=== PATIENT | male | born 1960 | race Caucasian/White ===

== ENCOUNTER → 2017-01-12 | Outpatient (REF) | payer OTHER ==
[2017-01-12 13:54] LABS: BLOOD UREA NITROGEN 16 MG/DL (7-18); CREATININE FOR GFR 0.96 MG/DL (0.70-1.30); GLOMERULAR FILTRATION RATE > 60.0 (>56)
== END ==
LOC: M LABDRAW1 10:28
PROVIDERS: ATTEND Orthopaedic Surgery
DX: M16.12 Unilateral primary osteoarthritis, left hip (principal)

== ENCOUNTER → 2018-05-29 | Outpatient (CLI) | payer BC, OTHER ==
--- NOTE | 2018-05-29 20:38 | REP ---
MRI RIGHT KNEE: TECHNIQUE: Axial proton density fat saturation, sagittal proton density T2 STIR, water excitation, coronal proton density, proton density fat saturation. There is a tear of the posterior horn of the medial meniscus. Lateral meniscus is intact. There has been prior reconstruction of the cruciate ligament, which appears intact. The posterior cruciate ligaments are intact. Extensor mechanism is intact. There is mild scattered chondromalacia throughout the medial and lateral joint compartments. There is no bone marrow edema or occult fracture. There is a moderate joint effusion. No popliteal cysts is seen. IMPRESSION: Tear of the posterior horn medial meniscus. Reconstructed anterior cruciate ligament is intact as are the other ligamentous structures of the knee. Mild diffuse chondromalacia in the medial and lateral joint compartments. Moderate joint effusion. Electronically Signed by Raffy Lugo MD 05/30/2018 11:36 A
== END ==
LOC: M RAD 14:41
PROVIDERS: ATTEND Orthopaedic Surgery Sports Medicine
DX: S83.241A Other tear of medial meniscus, current injury, right knee, initial encounter (principal); X58.XXXA Exposure to other specified factors, initial encounter; Y92.9 Unspecified place or not applicable

== ENCOUNTER → 2019-07-23 | Outpatient (CLI) | payer BC, OTHER ==
[~2019-07-23] MED LIST: CONRAY-43 43% 50ML VIAL (Q9960) As Ordered ONE; LIDOCAINE 1% MDV 20ML VIAL As Ordered ONE; TRIAMCINOLONE ACETONIDE SUSP 40 MG/ML VIAL (J3301) As Ordered ONE
--- NOTE | 2019-07-23 17:17 | REP ---
LEFT HIP INJECTION The procedure was performed under the direct supervision of Dr. Monahan. The risks and benefits of the procedure were explained to the patient and informed consent was obtained. The left femoral neck was localized using fluoroscopic guidance. The skin was prepped and draped in a sterile fashion. 1% lidocaine was used as a local anesthetic. Using fluoroscopic guidance a 22-gauge spinal needle was inserted and advanced to the femoral neck. 0.5 ml of Conray 43 was injected to verify placement. 6 ml of a solution containing 5 ml of 1% lidocaine and 1 ml of Kenalog 40 mg injected. The needle was then removed. The patient tolerated the procedure well and there were no immediate complications. Less than 6 seconds of fluoroscopy time was utilized for this procedure. Electronically Signed by ZHANNA Aleman 07/23/2019 04:57 P Electronically Signed by Morteza Monahan MD 07/23/2019 05:09 P
== END ==
LOC: M RADPRO 14:07
PROVIDERS: ATTEND Orthopaedic Surgery Sports Medicine
DX: M16.12 Unilateral primary osteoarthritis, left hip (principal)
CPT/HCPCS: 20610; 77002; J3301; Q9960

== ENCOUNTER 2021-03-06 11:25 | Observation (INO) | payer BC, OTHER ==
[~2021-03-06] VITALS: Ht 188 cm; Wt 90.8 kg
--- OUTSIDE RECORDS SUMMARY | 2021-03-06 11:33 | CCD ---
Author Author [facility] Organization [facility] Address Unknown Phone Unavailable Care Team Providers Care It Consultant Name Role Phone YENNI, Ana MENDEZ PA Unavailable Unavailable LETTIERE, A ANDREA PA Unavailable Unavailable LETTIERE, A ANDREA PA Unavailable Unavailable LETTIERE, A ANDREA PA Unavailable Unavailable LETTIERE, A ANDREA PA Unavailable Unavailable LETTIERE, A ANDREA PA Unavailable Unavailable LETTIERE, A ANDREA PA Unavailable Unavailable LETTIERE, A ANDREA PA Unavailable Unavailable LETTIERE, A ANDREA PA Unavailable Unavailable LETTIERE, A ANDREA PA Unavailable Unavailable LETTIERE, A ANDREA PA Unavailable Unavailable LETTIERE, A ANDREA PA Unavailable Unavailable LETTIERE, A ANDREA PA Unavailable Unavailable LETTIERE, A ANDREA PA Unavailable Unavailable LETTIERE, A ANDREA PA Unavailable Unavailable LETTIERE, A ANDREA PA Unavailable Unavailable LETTIERE, A ANDREA PA Unavailable Unavailable LETTIERE, A ANDREA PA Unavailable Unavailable LETTIERE, A ANDREA PA Unavailable Unavailable LETTIERE, A ANDREA PA Unavailable Unavailable LETTIERE, A ANDREA PA Unavailable Unavailable LETTIERE, A ANDREA PA Unavailable Unavailable LETTIERE, A ANDREA PA Unavailable Unavailable LETTIERE, A ANDREA PA Unavailable Unavailable LETTIERE, A ANDREA PA Unavailable Unavailable LETTIERE, A ANDREA PA Unavailable Unavailable LETTIERE, A ANDREA PA Unavailable Unavailable LETTIERE, A ANDREA PA Unavailable Unavailable LETTIERE, A ANDREA PA Unavailable Unavailable LETTIERE, A ANDREA PA Unavailable Unavailable LETTIERE, A ANDREA PA Unavailable Unavailable Jonny Phelps Unavailable Unavailable Jonny Phelps Unavailable Unavailable Jonny Phelps Unavailable Unavailable Jonny Phelps Unavailable Unavailable Jonny Phelps Unavailable Unavailable Jonny Phelps Unavailable Unavailable Jonny Phelps Unavailable Unavailable Phelps, M Barratt PA Unavailable Unavailable Phelps, M Barratt PA Unavailable Unavailable Phelps, M Barratt PA Unavailable Unavailable Phelps, M Barratt PA Unavailable Unavailable Phelps, M Barratt PA Unavailable Unavailable Phelps, M Barratt PA Unavailable Unavailable Phelps, M Barratt PA Unavailable Unavailable Phelps, M Barratt PA Unavailable Unavailable Phelps, M Barratt PA Unavailable Unavailable Phelps, M Barratt PA Unavailable Unavailable Phelps, M Barratt PA Unavailable Unavailable Phelps, M Barratt PA Unavailable Unavailable Phelps, M Barratt PA Unavailable Unavailable Phelps, M Barratt PA Unavailable Unavailable Phelps, M Barratt PA Unavailable Unavailable Phelps, M Barratt PA Unavailable Unavailable Phelps, M Barratt PA Unavailable Unavailable Phelps, M Barratt PA Unavailable Unavailable Phelps, M Barratt PA Unavailable Unavailable Phelps, M Barratt PA Unavailable Unavailable Phelps, M Barratt PA Unavailable Unavailable Phelps, M Barratt PA Unavailable Unavailable Hadian, Braydon Unavailable Unavailable Hadian, Braydon Unavailable Unavailable Hadian, Braydon Unavailable Unavailable Hadian, Braydon Unavailable Unavailable Hadian, Braydon Unavailable Unavailable Hadian, Braydon Unavailable Unavailable Hadian, Braydon Unavailable Unavailable Hadian, Braydon Unavailable Unavailable Hadian, Braydon Unavailable Unavailable Hadian, Braydon Unavailable Unavailable Hadian, Braydon Unavailable Unavailable Hadian, Braydon Unavailable Unavailable Hadian, Braydon Unavailable Unavailable Hadian, Braydon Unavailable Unavailable Hadian, Braydon Unavailable Unavailable Hadian, Braydon Unavailable Unavailable Hadian, Braydon Unavailable Unavailable Hadian, Braydon Unavailable Unavailable Hadian, Braydon Unavailable Unavailable Hadian, Braydon Unavailable Unavailable Hadian, Braydon Unavailable Unavailable Hadian, Braydon Unavailable Unavailable Hadian, Braydon Unavailable Unavailable Hadian, Braydon Unavailable Unavailable Hadian, Braydon Unavailable Unavailable Hadian, Braydon Unavailable Unavailable Hadian, Braydon Unavailable Unavailable Hadian, Braydon Unavailable Unavailable Hadian, Braydon Unavailable Unavailable Hadian, Braydon Unavailable Unavailable Hadian, Braydon Unavailable Unavailable Hadian, Braydon Unavailable Unavailable Hadian, Braydon Unavailable Unavailable Hadian, Braydon Unavailable Unavailable Hadian, Braydon Unavailable Unavailable Hadian, Braydon Unavailable Unavailable Hadian, Braydon Unavailable Unavailable Hadian, Braydon Unavailable Unavailable Hadian, Braydon Unavailable Unavailable Hadian, Braydon Unavailable Unavailable Hadian, Braydon Unavailable Unavailable Hadian, Braydon Unavailable Unavailable Priya Sosa MD Unavailable Unavailable Priya Sosa MD Unavailable Unavailable VaneenenaamPriya MD Unavailable Unavailable VaneenenaamPriya MD Unavailable Unavailable VaneenesvinamPriya MD Unavailable Unavailable VaneenenaamPriya MD Unavailable Unavailable VaneenenaamPriya MD Unavailable Unavailable VaneenenaamPriya MD Unavailable Unavailable VaneenesvinamPriya MD Unavailable Unavailable VanyahairaamPriya MD Unavailable Unavailable VanyahairaamPriya MD Unavailable Unavailable VaneenesvinamPriya MD Unavailable Unavailable VaneenenaamPriya MD Unavailable Unavailable VaneenenaamPriya MD Unavailable Unavailable VaneenenaamPriya MD Unavailable Unavailable VanPriya patel MD Unavailable Unavailable VaneenesvinamPriya MD Unavailable Unavailable VaneenesvinamPriya MD Unavailable Unavailable Vaneenesvinam, Priya Ybarra MD Unavailable Unavailable VanyahairaamPriya MD Unavailable Unavailable VanPriya patel MD Unavailable Unavailable VanPriya patel MD Unavailable Unavailable VanPriya patel MD Unavailable Unavailable VanPriya patel MD Unavailable Unavailable VanPriya patel MD Unavailable Unavailable VanPriya patel MD Unavailable Unavailable VaneenPriya fontanez MD Unavailable Unavailable VanPriya patel MD Unavailable Unavailable VanPriya patel MD Unavailable Unavailable VanPriya patel MD Unavailable Unavailable VanPriya patel MD Unavailable Unavailable VanPriya patel MD Unavailable Unavailable VanPriya patel MD Unavailable Unavailable VanPriya patel MD Unavailable Unavailable VanPriya patel MD Unavailable Unavailable VanPriya patel MD Unavailable Unavailable VanPriya patel MD Unavailable Unavailable VanPriya patel MD Unavailable Unavailable VanPriya patel MD Unavailable Unavailable VanPriya patel MD Unavailable Unavailable Priya Sosa MD Unavailable Unavailable Priya Sosa MD Unavailable Unavailable Priya Sosa MD Unavailable Unavailable Priya Sosa MD Unavailable Unavailable Priya Sosa MD Unavailable Unavailable VanyahairaamPriya MD Unavailable Unavailable Gadiel Zafar MD Unavailable Unavailable Gadiel Zafar MD Unavailable Unavailable Gadiel Zafar MD Unavailable Unavailable Gadiel Zafar MD Unavailable Unavailable Gadiel Zafar MD Unavailable Unavailable Gadiel Zafar MD Unavailable Unavailable Gadiel Zafar MD Unavailable Unavailable Gadiel Zafar MD Unavailable Unavailable Gadiel Zafar MD Unavailable Unavailable Gadiel Zafar MD Unavailable Unavailable Gadiel Zafar MD Unavailable Unavailable Gadiel Zafar MD Unavailable Unavailable Gadiel Zafar MD Unavailable Unavailable Gadiel Zafar MD Unavailable Unavailable Gadiel Zafar MD Unavailable Unavailable Gadiel Zafar MD Unavailable Unavailable Gadiel Zafar MD Unavailable Unavailable Gadiel Zafar MD Unavailable Unavailable Gadiel Zafar MD Unavailable Unavailable Gadiel Zafar MD Unavailable Unavailable Gadiel Zafar MD Unavailable Unavailable Gadiel Zafar MD Unavailable Unavailable Gadiel Zafar MD Unavailable Unavailable Gadiel Zafar MD Unavailable Unavailable Gadiel Zafar MD Unavailable Unavailable Gadiel Zafar MD Unavailable Unavailable Gadiel Zafar MD Unavailable Unavailable Gadiel Zafar MD Unavailable Unavailable Gadiel Zafar MD Unavailable Unavailable Gadiel Zafar MD Unavailable Unavailable Gadiel Zafar MD Unavailable Unavailable Gadiel Zafar MD Unavailable Unavailable Gadiel Zafar MD Unavailable Unavailable Gadiel Zafar MD Unavailable Unavailable Gadiel Zafar MD Unavailable Unavailable Gadiel Zafar MD Unavailable Unavailable Gadiel Zafar MD Unavailable Unavailable Gadiel Zafar MD Unavailable Unavailable Gadiel Zafar MD Unavailable Unavailable Gadiel Zafar MD Unavailable Unavailable Gadiel Zafar MD Unavailable Unavailable Gadiel Zafar MD Unavailable Unavailable Gadiel Zafar MD Unavailable Unavailable Gadiel Zafar MD Unavailable Unavailable Gadiel Zafar MD Unavailable Unavailable Gadiel Zafar MD Unavailable Unavailable Gadiel Zafar MD Unavailable Unavailable Gadiel Zafar MD Unavailable Unavailable Gadiel Zafar MD Unavailable Unavailable Gadiel Zafar MD Unavailable Unavailable Gadiel Zafar MD Unavailable Unavailable Gadiel Zafar MD Unavailable Unavailable Gadiel Zafar MD Unavailable Unavailable Gadiel Zafar MD Unavailable Unavailable Gadiel Zafar MD Unavailable Unavailable Gadiel Zafar MD Unavailable Unavailable Slebernadette, Vojtech MD Unavailable Unavailable Gadiel Zafar MD Unavailable Unavailable Re-disclosure Warning The records that you are about to access may contain information from federally-assisted alcohol or drug abuse programs. If such information is present, then the following federally mandated warning applies: This information has been disclosed to you from records protected by federal confidentiality rules (42 CFR part 2). The federal rules prohibit you from making any further disclosure of this information unless further disclosure is expressly permitted by the written consent of the person to whom it pertains or as otherwise permitted by 42 CFR part 2. A general authorization for the release of medical or other information is NOT sufficient for this purpose. The Federal rules restrict any use of the information to criminally investigate or prosecute any alcohol or drug abuse patient.The records that you are about to access may contain highly sensitive health information, the redisclosure of which is protected by Article 27-F of the [facility] Public Health law. If you continue you may have access to information: Regarding HIV / AIDS; Provided by facilities licensed or operated by the [facility] Office of Mental Health; or Provided by the [facility] Office for People With Developmental Disabilities. If such information is present, then the following [facility] mandated warning applies: This information has been disclosed to you from confidential records which are protected by state law. State law prohibits you from making any further disclosure of this information without the specific written consent of the person to whom it pertains, or as otherwise permitted by law. Any unauthorized further disclosure in violation of state law may result in a fine or long-term sentence or both. A general authorization for the release of medical or other information is NOT sufficient authorization for further disc losure. Family History Family Member Name Family Member Gender Family Member Status Date o f Status Description Data Source(s) Unknown Male Problem [facility] ([facility]) Unknown Unknown Encounters Encounter Providers Location Date Indications Data Source(s ) Outpatient Attender: ANDREA manning 03/06/2021 09:25:00 AM EDT [facility] ([facility] Outpatient Attender: Priya Sosa MD Physical Therap y 02/15/2021 01:00:00 PM EDT [facility] ([facility]) Outpatient Attender: Mary HERNANDEZ Physical Therapy 08:45:00 AM EDT [facility] ([facility]) Outpatient Attender: Gadiel [email or web address] 08/2020 12:00:00 AM EDT - 09/21/2020 11:10:36 AM EDT [facility] Outpatient Attender: Braydon Chester ED-LABPNP 02:14:00 PM EST - 07/12/2020 02:15:00 PM EST RETURN TO WORK [facility] RETURN TO WORK Patient discharged. Office Visit Attender: Mary HERNANDEZ Physical Therapy 08:15:00 AM EST [facility] ([facility]) Office Visit Attender: Mary HERNANDEZ Physical Therapy 08:15:00 AM EST [facility] ([facility]) Office Visit Attender: Mary HERNANDEZ Physical Therapy 08:15:00 AM EST [facility] ([facility]) Immunizations Vaccine Date Status Description Data Source(s) COVID-19 VACCINE Moderna 02/02/2021 12:00:00 AM EDT completed [facility] Vaccine Series Complete: YESThis Data wa s Submitted to [facility] [employer]. COVID-19 VACCINE Moderna 01/05/2021 12:00:00 AM EDT completed [facility] Vaccine Series Complete: NOThis Data was Submitted to [facility] [employer]. VARICELLA-ZOSTER [id number] 07/28/2020 12:00:00 AM EST completed [facility] Medications Medication Brand Name Start Date Product Form Dose Route Admi nistrative Instructions Pharmacy Instructions Status Indications Reaction Description Data Source(s) 5 % 12/15/2020 12:00:00 AM EDT cream 40 APPLY TO SCALY SPOT ON FOREHEAD TWO TIMES A DAY FOR 2-3 WEEKS UNTIL LESION BECOMES "PEPPERONI RED". WILL CAUSE IRRITATION BUT HOLD FOR SEVERE PAIN/OOZING/ULCERATION. PROTECT FROM SUN APPLY TO SCALY SPOT ON FOREHEAD TWO TIMES A DAY FOR 2-3 WEEKS UNTIL LESION BECOMES "PEPPERONI RED". WILL CAUSE IRRITATION BUT HOLD FOR SEVERE PAIN/OOZING/ULCERATION. PROTECT FROM SUN SOLD: 12/22/2020 [facility] 3.5mg/mL-10,000 unit/mL-0.1 % 08/06/2020 12:00:00 AM EDT dick ps,suspension 5 INSTILL 1 DROP INTO BOTH EYES FOUR TIMES A DAY FOR 10 DAYS INSTILL 1 DROP INTO BOTH EYES FOUR TIMES A DAY FOR 10 DAYS SOLD: 08/11/2020 [facility] 3.5mg/mL-10,000 unit/mL-0.1 % 07/16/2020 12:00:00 AM EST dick ps,suspension 5 INSTILL 1 DROP INTO BOTH EYES FOUR TIMES A DAY FOR 10 DAYS INSTILL 1 DROP INTO BOTH EYES FOUR TIMES A DAY FOR 10 DAYS SOLD: 07/16/2020 [facility] 800 mg 07/01/2020 12:00:00 AM EST tablet 60 TAKE ONE TABLET BY MOUTH THREE TIMES A DAY NEEDED FOR PAIN WITH FOOD TAKE ONE TABLET BY MOUTH THREE TIMES A DAY NEEDED FOR PAIN WITH FOOD SOLD: 07/12/2020 [facility] Ibuprofen 800 MG Oral Tablet Ibuprofen 07/01/2020 12:00:00 AM EST ORAL active [facility] ([facility]) 2 ML Sodium Hyaluronate 10 MG/ML Prefilled Syringe [Euflexxa ] Euflexxa 06/17/2020 12:00:00 AM EST active [facility] ([facility]) atorvastatin 10 MG Oral Tablet atorvastatin (LIPITOR) 10 MG tablet atorvastatin (LIPITOR) 10 MG tablet 05/10/2020 12:00:00 AM EST 10 mg Oral active Take 1 tablet (10 mg total) by mouth daily [facility] Cholecalciferol 1000 UNT Oral Capsule ch olecalciferol (VITAMIN D3) 25 MCG (1000 UT) capsule cholecalciferol (VITAMIN D3) 25 MCG (1000 UT) capsule 1000 U Oral aborted Take 1,000 Units by mouth daily [facility] Insurance Providers Payer name Policy type / Coverage type Policy ID Covered green party ID Covered green party's relationship to pope Policy Pope Plan Information [facility] () Workers Compensation [id number] Self [id number] [facility] [employer] () Workers Compensation [id number] Self [id number] [facility] () Workers Compensation [id number] Self [id number] [facility] Health Maintenance Organization (HMO) [id number] Self [id number] [facility] Health Maintenance Organization (HMO) [id number] Self [id number] BCBS EMPIRE JACQUELINE DIV [id number] SP [id number] UNITED [employer] [id number] SP [id number] EXCELLUS BCBS [id number] EXCELLUS BCBS [id number] Sabina YLS [id number] [facility] INSURANCE [facility] [place] [id number] SP [id number] BCBS E[place]IRE [place] [id number] SP [id number] UNITED [employer] [id number] SP [id number] [place] Plan [employer] Commercial [id number] Self [id number] [place] Plan [employer] Commercial [id number] Self EMPIRE ([facility]) O [id number] S [id number] EMPIRE BLUE CROSS -O/P [id number] [employer] Health Maintenance Organization (HMO) [id number] Self [facility] EMPIRE PLAN O [id number] S [id number] UNITED HE[employer]CARE [id number] SP [id number] EMPIRE HEALTH CHOICE O [id number] S [id number] BCBS EMPIRE [place]QUELINE DIV [id number] SP [id number] EXCELLUS [place] EMPIRE [id number] S [id number] EXCELLUS BCBS [place] EMPIRE [id number] S [id number] [facility] [id number] S [id number] BCBS EMPIRE [id number] S [id number] EMPIRE ([facility]) O [id number] S [id number] [facility] [id number] SP [id number] BCBS EMPIRE JACQUELINE DIV [id number] SP [id number] Problems, Conditions, and Diagnoses Code Display Name Description Problem Type Effective Dates Data Source(s) H53.122 Transient visual loss, left eye Transient visual loss, left eye Diagnosis 09/21/2020 10:13:35 AM EDT [facility] R42 Dizziness and giddiness Dizziness and giddiness Diagno sis 09/21/2020 10:13:35 AM EDT [facility] E78.00 Pure hypercholesterolemia, unspecified P ure hypercholesterolemia, unspecified Diagnosis 09/21/2020 10:13:35 AM EDT [facility] R94.31 Abnormal electrocardiogram [ECG] [EKG] A bnormal electrocardiogram (ECG) (EKG) Diagnosis 09/21/2020 10:13:35 AM EDT [facility] Surgeries/Procedures Procedure Description Date Indications Data Source(s) OFFICE OUTPATIENT NEW 30 MINUTES 03/06/2021 12:00:00 A M EDT [facility] ([facility]) RADIOLOGIC EXAMINATION KNEE 3 VIEWS 02/15/2021 12:00:0 0 AM EDT [facility] ([facility] OFFICE OUTPATIENT VISIT 25 MINUTES 02/15/2021 12:00:00 AM EDT [facility] ([facility] ) ARTHROCENTESIS ASPIR&/INJECTION MAJOR JT/BURSA 021 12:00:00 AM EDT [facility] ([facility] OFFICE OUTPATIENT VISIT 25 MINUTES 11/25/2020 12:00:00 AM EDT [facility] ([facility] ECG ROUTINE ECG W/LEAST 12 LDS W/I&R <td>POCT AMB EKG</td><td>Routine</td><td>09/21/2020 10:42 AM EDT</td><td> Abnormal electrocardiogram Pure hypercholesterolemia</td><td> </td> 09/21/2020 10:42:00 AM EDT Pure hypercholesterolemiaAbnormal electrocardiogram [facility] Pure hypercholesterolemia Abnormal electrocardiogram ARTHROCENTESIS ASPIR&/INJECTION MAJOR JT/BURSA 021 12:00:00 AM EST [facility] ([facility]) ARTHROCENTESIS ASPIR&/INJECTION MAJOR JT/BURSA 021 12:00:00 AM EST [facility] ([facility]) ARTHROCENTESIS ASPIR&/INJECTION MAJOR JT/BURSA 021 12:00:00 AM EST [facility] ([facility]) Results ID Date Data Source [id number] 07/12/2020 01:12:00 PM EST [facility] Name Value Range Interpretation Code Description Data Lea rce(s) Supporting Document(s) Respiratory specimen severe acute respir atory syndrome coronavirus 2 (SARS-CoV-2) RNA Negative (qualifier value) [facility] This lab was ordered by [facility] and reported by . ID Date Data Source [id number] 07/13/2020 07:45:00 AM EST [facility] Name Value Range Interpretation Code Description Data Lea rce(s) Supporting Document(s) SARS-CoV-2 RNA INHOUSE Negative Normal (applies to non-n umeric results) [facility] THIS IS A STATE REPORTABLE COMMUNICABLE DISEASE. Testing was performed using the [employer] COVID-19 MDx Assay. This test has been authorized by FDA under an (Emergency Use Authorization) EUA for use by authorized laboratories for individuals who are suspected of COVID-19 by their healthcare provider. This test is only authorized for the duration of the declaration that circumstances exist justifying the authorization of emergency use of in vitro diagnostic tests for detection and/or diagnosis of SARS-CoV-2. Methodology: Endpoint RT-PCR. Fact sheets for this EUA assay can be found at the following links: Providers: https://www.fda.gov/media/735313/download Patients : https://www.fda.gov/media/233701/download THIS IS A [facility] REPORTABLE COMMUNICABLE DISEASE Negative results do not preclude SARS-CoV-2 infection and should not be used as the sole basis for patient management decisions. Negative results must be combined with clinical observations,patient history, and epidemiological information. Procedure Social History Code Duration Value Status Description Data Source(s ) Smoking 03/06/2021 12:00:00 AM EDT Patient has never smoked co mpleted Patient has never smoked [facility] ([facility], [facility]) Alcohol intake 09/21/2020 12:00:00 AM EDT Ex-drinker (finding) comp leted Ex- drinker (finding) [facility] Smoking 06/17/2020 12:00:00 AM EST Patient has never smoked co mpleted Patient has never smoked [facility] ([facility]) Vital Signs ID Date Data Source UNK Name Value Range Interpretation Code Description Data Source(s) Systolic blood pressure 93 mm[Hg] 93 mm[Hg] M EDENT ([facility], [facility]) Diastolic blood pressure 63 mm[Hg] 63 mm[Hg] [facility] ([facility], [facility]) Heart rate 64 /min 64 /min [facility]) Respiratory rate 18 /min 18 /min [facility] ( [facility]) Oxygen saturation in Arterial blood by Pulse oximetry 98 % 98 % [facility] ([facility], [facility]) Body temperature 96.6 [degF] 96.6 [degF] [facility]) Body weight 205.00 [lb_av] 205.00 [lb_av] MEDEN T ([facility], [facility]) Body height 74 [in_i] 74 [in_i] [facility] ([facility]) 6'2" Body mass index (BMI) [Ratio] 26.3 kg/m2 26.3 k g/m2 [facility] ([facility]) Body temperature 96.8 [degF] 96.8 [degF] [facility] ([facility]) Body height 74 [in_i] 74 [in_i] [facility] ([facility]) 6'2" Body mass index (BMI) [Ratio] 26.7 kg/m2 26.7 k g/m2 [facility] ([facility]) Body weight 208.00 [lb_av] 208.00 [lb_av] MEDEN T ([facility]) Systolic blood pressure 128 mm[Hg] 128 mm[Hg] [facility] Diastolic blood pressure 78 mm[Hg] 78 mm[Hg] [facility] Heart rate 66 /min 66 /min [facility] Body height 188 cm 188 cm [facility] Body weight 101.152 kg 101.152 kg [facility] Body mass index (BMI) [Ratio] 28.63 kg/m2 28.63 kg/m2 [facility] Oxygen saturation in Arterial blood by Pulse oximetry 96 % 96 % [facility] Patient Treatment Plan of Care Planned Activity Planned Date Details Description Data Source (s) atorvastatin 10 MG Oral Tablet 05/10/2020 12:00:00 AM EST [facility] Cholecalciferol 1000 UNT Oral Capsule [facility]
--- OUTSIDE RECORDS SUMMARY | 2021-03-06 11:33 | CCD | Continuity of Care Document ---
Author Author Shaggy SOSA MD Organization Unknown Address [address] [place] [address], [address] [address] Phone [phone] Care Team Providers Care Python Architect Name Role Phone Reason, Jalen DO AUTM [phone] Problems Description No Active Problems Social History Type Date Description Comments Sex Unknown ETOH Use Occasionally consumes alcohol Tobacco Use Start: Unknown Patient has never smoked Smoking Status Reviewed: 06/17/20 Patient has never smoked Allergies, Adverse Reactions, Alerts Active Allergies Criticality Reaction | Severity Comments Date Crab Unable to assess criticality 11/05/2019 Shrimp Unable to assess criticality 11/05/2019 Lobster Unable to assess criticality 11/05/2019 Medications Active Medications SIG Qnty Indications Ordering Provide r Date Ibuprofen 800mg Tablets 1 tab by mouth three times a day as needed for pain, take with food 60tabs DMaster Sosa MD 07/01/2020 Euflexxa 20mg/2ML Soln Prefill Syr sunshine rt knee #1 06/17/20 bms/bc rt knee#2bms/tf 06/24/2020 rt knee #3 07/01/20 bms/bc Esdras Jones MD 06/17/2020 Fluorouracil 5% Cream Apply To Scaly Spot On Forehead Two Times A Day For 2 3 Weeks Until Lesion Becom Unknown Atorvastatin Calcium 10mg Tablets Jose Graham NP Neomycin/Polymyxin/Dexamethasone 3.5-53971-5.1 Suspension Unknown Immunizations Description No Information Available Vital Signs Date Vital Result Comment 02/15/2021 12:59pm Body Temperature 96.8 F Height 74 inches 6'2" Weight 208.00 lb BMI (Body Mass Index) 26.7 kg/m2 01/12/2017 9:34am Body Temperature 96.8 F Height 73 inches 6'1" Weight 208.00 lb BMI (Body Mass Index) 27.4 kg/m2 Results Description No Information Available Procedures Date Code Description Status 02/15/2021 21466 X-Ray Knee Ap & Lateral W/Obliqu es Three Views Completed 11/25/2020 02888 Office/Outpatient Established Mo d MDM 30-39 Min Completed 11/25/2020 74582 Inject/Drain Joint/Bursa Major C ompleted Medical Devices Description No Information Available Encounters Type Date Location Provider Dx Diagnosis Office Visit 11/25/2020 8:45a [place] Mary Phelps PA-C M1 7.11 Unilateral primary osteoarthritis, right knee Assessments Date Code Description Provider 02/15/2021 M17.11 Unilateral primary osteoarthriti s, right knee Shahriar Sosa MD 02/15/2021 M23.221 Derangement of poste rior horn of medial meniscus due to old tear or injury, right knee Shahriar Sosa MD 11/25/2020 M17.11 Unilateral primary osteoarthriti s, right knee Mayr Phelps PA-C Plan of Treatment 02/15/2021 - Shahriar Sosa MD* M17.11 Unilateral primary osteoarthritis, right knee* New Orders:* Surgery, Ordered: 02/15/21 * Follow up:* post op * M23.221 Derangement of posterior horn of medial meniscus due to old tear or injury, right knee Functional Status Description No Information Available Mental Status Description No Information Available Referrals Refer to Reason for Referral Status Appt Date Amarjit Davies PA EUFLEXXA RT KNEE OK TO [facility] P ER MTGS PASSED TO [facility]. LS Created [facility] [address] [place] [address] [phone]
--- OUTSIDE RECORDS SUMMARY | 2021-03-06 11:33 | CCD | Continuity of Care Document ---
Author Author Shaggy SOSA MD Organization Unknown Address [address] [place] [address], [address] [address] Phone [phone] Care Team Providers Care Library Circulation Clerk Name Role Phone Reason, Jalen DO AUTM [phone] Problems Description No Active Problems Social History [...] SIG Qnty Indications Ordering Provide r Date Fluorouracil 5% Cream Apply To Scaly Spot On Forehead Two Times A Day For 2 3 Weeks Until Lesion Becom Unknown Atorvastatin Calcium 10mg Tablets Jose Graham NP Neomycin/Polymyxin/Dexamethasone 3.5-14418-8.1 Suspension Unknown Immunizations Description No Information Available Vital Signs Date Vital Result Comment 02/15/2021 12:59pm Body Temperature 96.8 F Height 74 inches 6'2" Weight 208.00 lb BMI (Body Mass Index) 26.7 kg/m2 01/12/2017 9:34am Body Temperature 96.8 F Height 73 inches 6'1" Weight 208.00 lb BMI (Body Mass Index) 27.4 kg/m2 Results Description No Information Available Procedures Date Code Description Status 02/15/2021 22860 Office/Outpatient Established Mo d MDM 30-39 Min Completed 02/15/2021 00024 X-Ray Knee Ap & Lateral W/Obliqu es Three Views Completed 11/25/2020 59956 Office/Outpatient Established Mo d MDM 30-39 Min Completed 11/25/2020 12292 Inject/Drain Joint/Bursa Major C ompleted Medical Devices Description No Information Available Encounters Type Date Location Provider Dx Diagnosis Office Visit 02/15/2021 1:00p [place] Shahriar Sosa MD M1 7.11 Unilateral primary osteoarthritis, right knee M23.221 Derang of post horn of media l mensc d/t old tear/inj, r knee M23.611 Oth spon disrupt of anterior cruciate ligament of right knee Office Visit 11/25/2020 8:45a [place] Mary Phelps PA-C M1 7.11 Unilateral primary osteoarthritis, right knee Assessments Date Code Description Provider 02/15/2021 M17.11 Unilateral primary osteoarthriti s, right knee Shahriar Sosa MD 02/15/2021 M23.221 Derangement of poste rior horn of medial meniscus due to old tear or injury, right knee Shahriar Sosa MD 02/15/2021 M23.611 Other spontaneous di sruption of anterior cruciate ligament of right knee Shahriar Sosa MD 11/25/2020 M17.11 Unilateral primary osteoarthriti s, right knee Mary Phelps PA-C Plan of Treatment 02/15/2021 - Shahriar Sosa MD* M17.11 Unilateral primary osteoarthritis, right knee* New Orders:* Surgery, Ordered: 02/15/21 * Follow up:* post op * M23.221 Derangement of posterior horn of medial meniscus due to old tear or injury, right knee * M23.611 Other spontaneous disruption of anterior cruciate ligament of right knee Functional Status Description No Information Available Mental Status Description No Information Available Referrals Refer to Reason for Referral Status Appt Date Amarjit Davies PA EUFLEXXA RT KNEE OK TO [facility] P ER MTGS PASSED TO [facility]. LS Created [address] [facility] [address] [place] [id number] [phone]
--- OUTSIDE RECORDS SUMMARY | 2021-03-06 11:59 | CCD ---
Author Author [facility] Organization [facility] Address Unknown Phone Unavailable Care Team Providers Care Oven Dauber Name Role Phone YENNI, Ana MENDEZ PA [...] Phelps Unavailable Unavailable Jonny Phelps Unavailable Unavailable Phleps, M Barratt PA Unavailable Unavailable Phelps, M [...] Braydon Unavailable Unavailable Hadian, Braydon Unavailable Unavailable VaneenPriya fontanez MD Unavailable Unavailable VaneenenaamPriya MD Unavailable Unavailable VaneenenaamPriya MD Unavailable Unavailable VaneenenaamPriya MD Unavailable Unavailable VaneenenaamPriya MD Unavailable Unavailable VaneenenaamPriya MD Unavailable Unavailable VaneenesvinamPriya MD Unavailable Unavailable VaneenesvinamPriya MD Unavailable Unavailable VaneenenaamPriya MD Unavailable Unavailable Vaneenenaam, Priya Ybarra MD Unavailable Unavailable VaneenenaamPriya MD Unavailable Unavailable Vaneenenaam, Priya Ybarra MD Unavailable Unavailable VaneenenaamPriya MD Unavailable Unavailable Vaneenesvinam, Priya Ybarra MD Unavailable Unavailable VanyahairaamPriya MD Unavailable Unavailable Vaneenesvinam, Priya Ybarra MD Unavailable Unavailable VaneenesvinamPriya MD Unavailable Unavailable Vaneenesvinam, Priya Ybarra MD Unavailable Unavailable VanPriya patel MD Unavailable Unavailable VanPriya patel MD Unavailable Unavailable VanPriya patel MD Unavailable Unavailable VanyahairaamPriya MD Unavailable Unavailable VanyahairaamPriya MD Unavailable Unavailable VaneenesvinamPriya MD Unavailable Unavailable VanPriya patel MD Unavailable Unavailable VanPriya patel MD Unavailable Unavailable VanPriya patel MD Unavailable Unavailable VanyahairaamPriya MD Unavailable Unavailable VanyahairaamPriya MD Unavailable Unavailable VanyahairaamPriya MD Unavailable Unavailable VaneenesvinamPriya MD Unavailable Unavailable VanPriya patel MD Unavailable Unavailable VanyahairaamPriya MD Unavailable Unavailable VanPriya patel MD Unavailable Unavailable VanyahairaamPriya MD Unavailable Unavailable VanPriya patel MD Unavailable Unavailable VanPriya patel MD Unavailable Unavailable VanPriya patel MD Unavailable Unavailable VanPriya patel MD Unavailable Unavailable VanPriya patel MD Unavailable Unavailable VanyahairaamPriya MD Unavailable Unavailable VanyahairaamPriya MD Unavailable Unavailable VanyahairaamPriya MD Unavailable Unavailable VanyahairaamPriya MD Unavailable Unavailable VanPriya patel MD Unavailable Unavailable VanPriya patel MD Unavailable Unavailable Gadiel Zafar MD Unavailable [...] is protected by Article 27-F of the [facility] Public Health law. If you continue you may have access to information: Regarding HIV / AIDS; Provided by facilities licensed or operated by the [facility] Office of Mental Health; or Provided by the [facility] Office for People With Developmental Disabilities. If such information is present, then the following [facility] mandated warning applies: This information has been [...] law may result in a fine or shelter sentence or both. A general authorization for the release of medical or other information is NOT sufficient authorization for further disc losure. Family History Family Member Name Family Member Gender Family Member Status Date o f Status Description Data Source(s) Unknown Male Problem [facility] ([facility]) Unknown Unknown Encounters Encounter Providers Location Date Indications Data Source(s ) Outpatient Attender: ANDREA dotsony 03/06/2021 09:25:00 AM EDT [facility] ([facility]) Outpatient Attender: Priya Sosa MD Physical Therap y 02/15/2021 01:00:00 PM EDT [facility] ([facility]) Outpatient Attender: Mary HERNANDEZ Physical Therapy 08:45:00 AM EDT [facility] ([facility]) Outpatient Attender: Gadiel LÓPEZ.[email or web address].SONU 0508/2020 12:00:00 AM EDT - 09/21/2020 11:10:36 AM EDT [facility] Outpatient Attender: Braydon Nemo ED-LABPNP 02:14:00 PM EST - 07/12/2020 02:15:00 PM EST RETURN TO WORK [facility] RETURN TO WORK Patient discharged. Office Visit Attender: Mary HERNANDEZ Physical Therapy 08:15:00 AM EST [facility] ([facility]) Office Visit Attender: Mary HERNANDEZ Physical Therapy 08:15:00 AM EST [facility] ([facility]) Office Visit Attender: Mary HERNANDEZ Physical Therapy 08:15:00 AM EST [facility] ([facility]) Immunizations Vaccine Date Status Description Data Source(s) COVID-19 VACCINE Moderna 02/02/2021 12:00:00 AM EDT completed [facility] Vaccine Series Complete: YESThis Data wa s Submitted to [facility] Via [employer]. COVID-19 VACCINE Moderna 01/05/2021 12:00:00 AM EDT completed [facility] Vaccine Series Complete: NOThis Data was Submitted to [facility] Via [employer]. VARICELLA-ZOSTER GE/AS01B/PF 07/28/2020 12:00:00 AM EST completed [facility] Medications Medication Brand Name Start Date [...] 3.5mg/mL-10,000 unit/mL-0.1 % 08/06/2020 12:00:00 AM EDT dcik ps,suspension 5 INSTILL 1 DROP INTO BOTH [...] 07/01/2020 12:00:00 AM EST ORAL active [facility] ([facility]) 2 ML Sodium Hyaluronate 10 MG/ML Prefilled Syringe [Euflexxa ] Euflexxa 06/17/2020 12:00:00 AM EST active [facility] ([facility]) atorvastatin 10 MG Oral Tablet atorvastatin (LIPITOR) 10 MG tablet atorvastatin (LIPITOR) 10 MG tablet 05/10/2020 12:00:00 AM EST 10 mg Oral active Take 1 tablet (10 mg total) by mouth daily [facility] Cholecalciferol 1000 UNT Oral Capsule ch olecalciferol (VITAMIN D3) 25 MCG (1000 UT) capsule cholecalciferol (VITAMIN D3) 25 MCG (1000 UT) capsule 1000 U Oral aborted Take 1,000 Units by mouth daily [facility] Insurance Providers Payer name Policy type / Coverage type Policy ID Covered republican ID Covered republican's relationship to pope Policy Pope Plan Information State Ins Fund () Workers Compensation [id number] Self [id number] [facility] () Workers Compensation [id number] Self [id number] [facility] () Workers Compensation [id number] Self [id number] [facility] Health Maintenance Organization (HMO) [id number] Self [id number] [facility] Health Maintenance Organization (HMO) [id number] Self [id number] BCBS EMPIRE JACQUELINE DIV [id number] SP [id number] [employer] [id number] SP [id number] EXCELLUS BCBS [id number] EXCELLUS BCBS [id number] Sabina YLS [id number] [facility] [id number] SP [id number] BCBS EMPIRE JACQUELINE DIV [id number] SP [id number] [employer] [id number] SP [id number] [place] Plan [employer] [id number] Self [id number] [place] Plan [employer] [id number] Self EMPIRE ([facility]) O [id number] S [id number] EMPIRE BLUE CROSS -O/P [id number] [facility] Health Maintenance Organization (HMO) [id number] Self [facility] EMPIRE PLAN O [id number] S [id number] [facility] [id number] SP [id number] EMPIRE HEALTH CHOICE O [id number] S [id number] BCBS EMPIRE JACQUELINE DIV [id number] SP [id number] EXCELLUS BCBS [place] EMPIRE [id number] S [id number] EXCELLUS BCBS [place] EMPIRE [id number] S [id number] [facility] [id number] S [id number] BCBS EMPIRE [id number] S [id number] EMPIRE (STATE EMP) O [id number] S [id number] [facility] [id number] SP [id number] BCBS EMPIRE JACQUELINE DIV [id number] SP [id number] Problems, Conditions, and Diagnoses Code Display Name Description Problem Type Effective Dates Data Source(s) H53.122 Transient visual loss, left eye Transient visual loss, left eye Diagnosis 09/21/2020 10:13:35 AM EDT [facility] R42 Dizziness and giddiness Dizziness and giddiness Diagno sis 09/21/2020 10:13:35 AM EDT [facility] E78.00 Pure hypercholesterolemia, unspecified P ure hypercholesterolemia, unspecified Diagnosis 09/21/2020 10:13:35 AM EDT [facility] R94.31 Abnormal electrocardiogram [ECG] [EKG] A bnormal electrocardiogram (ECG) (EKG) Diagnosis 09/21/2020 10:13:35 AM EDT [facility] Surgeries/Procedures Procedure Description Date Indications Data Source(s) OFFICE OUTPATIENT NEW 30 MINUTES 03/06/2021 12:00:00 A M EDT [facility] ([facility]) RADIOLOGIC EXAMINATION KNEE 3 VIEWS 02/15/2021 12:00:0 0 AM EDT [facility] ([facility] OFFICE OUTPATIENT VISIT 25 MINUTES 02/15/2021 12:00:00 AM EDT [facility] ([facility]) ARTHROCENTESIS ASPIR&/INJECTION MAJOR JT/BURSA 021 12:00:00 AM EDT [facility] ([facility]) OFFICE OUTPATIENT VISIT 25 MINUTES 11/25/2020 12:00:00 AM EDT [facility] ([facility]) ECG ROUTINE ECG W/LEAST 12 LDS W/I&R <td>POCT AMB EKG</td><td>Routine</td><td>09/21/2020 10:42 AM EDT</td><td> Abnormal electrocardiogram Pure hypercholesterolemia</td><td> </td> 09/21/2020 10:42:00 AM EDT Pure hypercholesterolemiaAbnormal electrocardiogram [facility] Pure hypercholesterolemia Abnormal electrocardiogram ARTHROCENTESIS ASPIR&/INJECTION MAJOR JT/BURSA 021 12:00:00 AM EST [facility] ARTHROCENTESIS ASPIR&/INJECTION MAJOR JT/BURSA 021 12:00:00 AM EST [facility] ARTHROCENTESIS ASPIR&/INJECTION MAJOR JT/BURSA 021 12:00:00 AM EST [facility] Results ID Date Data Source [id number] 07/12/2020 01:12:00 PM EST [facility] Name Value Range Interpretation Code Description Data Lea rce(s) Supporting Document(s) Respiratory specimen severe acute respir atory syndrome coronavirus 2 (SARS-CoV-2) RNA Negative (qualifier value) [facility] This lab was ordered by [facility] and reported by . ID Date Data Source [id number] 07/13/2020 07:45:00 AM EST [facility] Name Value Range Interpretation Code Description Data Lea rce(s) Supporting Document(s) SARS-CoV-2 RNA INHOUSE Negative Normal (applies to non-n umeric results) [facility] THIS IS A STATE REPORTABLE COMMUNICABLE DISEASE. Testing was performed using the [employer] COVID-19 MDx Assay. This test has been [...] be found at the following links: Providers: https://www.fda.gov/media/105456/download Patients : https://www.fda.gov/media/585531/download THIS IS A [facility] REPORTABLE COMMUNICABLE DISEASE Negative results do not preclude SARS-CoV-2 infection and should not be used as the sole basis for patient management decisions. Negative results must be combined with clinical observations,patient history, and epidemiological information. Procedure Social History Code Duration Value Status Description Data Source(s ) Smoking 03/06/2021 12:00:00 AM EDT Patient has never smoked co mpleted Patient has never smoked [facility] ([facility]) Alcohol intake 09/21/2020 12:00:00 AM EDT Ex-drinker (finding) comp leted Ex- drinker (finding) [facility] Smoking 06/17/2020 12:00:00 AM EST Patient has never smoked co mpleted Patient has never smoked [facility] ([facility]) Vital Signs ID Date Data Source UNK Name Value Range Interpretation Code Description Data Source(s) Systolic blood pressure 93 mm[Hg] 93 mm[Hg] M [facility] ([facility]) Diastolic blood pressure 63 mm[Hg] 63 mm[Hg] [facility] ([facility]) Heart rate 64 /min 64 /min [facility]) Respiratory rate 18 /min 18 /min [facility] ( [facility]) Oxygen saturation in Arterial blood by Pulse oximetry 98 % 98 % [facility] ([facility], [facility]) Body temperature 96.6 [degF] 96.6 [degF] [facility] ([facility]) Body weight 205.00 [lb_av] 205.00 [lb_av] MED[facility] T ([facility]) Body height 74 [in_i] 74 [in_i] [facility] ([facility]) 6'2" Body mass index (BMI) [Ratio] 26.3 kg/m2 26.3 k g/m2 [facility] ([facility]) Body mass index (BMI) [Ratio] 26.7 kg/m2 26.7 k g/m2 [facility] ([facility]) Body temperature 96.8 [degF] 96.8 [degF] [facility] ([facility]) Body height 74 [in_i] 74 [in_i] [facility] ([facility]) 6'2" Body weight 208.00 [lb_av] 208.00 [lb_av] [facility] T ([facility]) Systolic blood pressure 128 mm[Hg] 128 mm[Hg] [facility] Diastolic blood pressure 78 mm[Hg] 78 mm[Hg] [facility] Heart rate 66 /min 66 /min [facility] Body height 188 cm 188 cm [facility] Body weight 101.152 kg 101.152 kg [facility] Body mass index (BMI) [Ratio] 28.63 kg/m2 28.63 kg/m2 [facility] Oxygen saturation in Arterial blood by Pulse oximetry 96 % 96 % [facility] Patient Treatment Plan of Care Planned Activity Planned Date Details Description Data Source (s) atorvastatin 10 MG Oral Tablet 05/10/2020 12:00:00 AM EST [facility] Cholecalciferol 1000 UNT Oral Capsule [facility]
[2021-03-06] MEDS ORDERED: NS 1,000 ML IV ONE (12:35)
[2021-03-06] MEDS ORDERED: IBUPROFEN 800 MG TAB PO ONE (12:40)
--- NOTE | 2021-03-06 13:11 | REP ---
INDICATION: sob COMPARISON: None. TECHNIQUE: Portable AP view of the chest FINDINGS: The mediastinum and cardiac silhouette are within normal limits for portable technique. The lung peacock are clear without acute consolidation, effusion, or pneumothorax. Skeletal structures are intact. IMPRESSION: No acute cardiopulmonary process appreciated. <Electronically signed by Tl Adams > 03/06/21 8120
[2021-03-06 13:16] LABS: HEMATOCRIT 42.6 % (42.0-52.0); MEAN CORPUSCULAR HEMOGLOBIN 29.7 pg (27.0-33.0); MEAN CORPUSCULAR HGB CONC 35.2 g/dl (32.0-36.5); MEAN CORPUSCULAR VOLUME 84.4 fl (80.0-96.0); RED BLOOD COUNT 5.05 10^6/uL (4.30-6.10); WHITE BLOOD COUNT 3.2 10^3/uL (4.0-10.0)
[2021-03-06 13:32] LABS: MONO SCRN NEGATIVE (NEGATIVE)
[2021-03-06 13:34] LABS: ERYTHROCYTE SEDIMENTATION RATE 23 mm/hr (0-20)
[2021-03-06 13:37] LABS: ALBUMIN 3.1 GM/DL (3.2-5.2); ALT/SGPT 61 U/L (12-78); BILIRUBIN,DIRECT 0.5 MG/DL (0.0-0.2); BILIRUBIN,TOTAL 1.2 MG/DL (0.2-1.0); CK-MB VALUE MASS < 1.0 NG/ML (<3.6); CPK CREATINE PHOSPHOKINASE 29 U/L (39-308); MB/CK RELATIVE INDEX 3.45 (< OR =4); TOTAL PROTEIN 6.6 GM/DL (6.4-8.2); TROPONIN I < 0.02 NG/ML (< 0.10)
[2021-03-06 13:38] LABS: PLATELET COUNT, AUTOMATED 54 10^3/uL (150-450)
[2021-03-06 13:45] LABS: ATYPICAL LYMPH 1 % (0-5); LYMPHOCYTES 4 % (16-44); MONOCYTES 9 % (0-5); NEUTROPHILS 52 % (28-66); PLASMA CELL 1 % (0-0); PLATELET ESTIMATE MARKED DECREASE (NORMAL)
--- OUTSIDE RECORDS SUMMARY | 2021-03-06 15:34 | CCD ---
Author Author [facility] Organization [facility] Address Unknown Phone Unavailable Care Team Providers Care Interactive Graphic Designer Name Role Phone YENNI, Ana MENDEZ PA [...] Braydon Unavailable Unavailable Hadian, Braydon Unavailable Unavailable VaneenenaamPriya MD Unavailable Unavailable VaneenesvinamPriya MD Unavailable Unavailable VaneenenaamPriya MD Unavailable Unavailable VaneenenaamPriya MD Unavailable Unavailable Vaneenenaam, Priya Ybarra MD Unavailable Unavailable VaneenenaamPriya MD Unavailable Unavailable VaneenesvinamPriya MD Unavailable Unavailable VaneenenaamPriya MD Unavailable Unavailable VaneenenaamPriya MD Unavailable Unavailable Vaneenenaam, Priya Ybarra MD Unavailable Unavailable VaneenenaamPriya MD Unavailable Unavailable Vaneenenaam, Priya Ybarra MD Unavailable Unavailable VaneenesvinamPriya MD Unavailable Unavailable Vaneenesvinam, Priya Ybarra MD Unavailable Unavailable VaneenesvinamPriya MD Unavailable Unavailable Vaneenenaam, Priya Ybarra MD Unavailable Unavailable VaneenesvinamPriya MD Unavailable Unavailable Vaneenesvinam, Priya Ybarra MD Unavailable Unavailable VanPriya patel MD Unavailable Unavailable VanyahairaamPriya MD Unavailable Unavailable VanPriya patel MD Unavailable Unavailable Vaneenesvinam, Priya Ybarra MD [...] Unavailable Unavailable Gadiel Zafar MD Unavailable Unavailable SlezkaGadiel MD Unavailable Unavailable SlelangjoGadiel MD Unavailable Unavailable SlelangjoGadiel MD Unavailable Unavailable SlezjoGadiel MD Unavailable Unavailable SlezjoGadiel MD Unavailable Unavailable Re-disclosure Warning The records [...] is protected by Article 27-F of the [facility] Public Health law. If you continue you may have access to information: Regarding HIV / AIDS; Provided by facilities licensed or operated by the [facility] Office of Mental Health; or Provided by the [facility] Office for People With Developmental Disabilities. If such information is present, then the following [facility] mandated warning applies: This information has [...] law may result in a fine or prison sentence or both. A general authorization for the release of medical or other information is NOT sufficient authorization for further disc losure. Family History Family Member Name Family Member Gender Family Member Status Date o f Status Description Data Source(s) Unknown Male Problem [facility] ([facility]) Unknown Unknown Encounters Encounter Providers Location Date Indications Data Source(s ) Outpatient Attender: ANDREA Gonzales kerri 03/06/2021 09:25:00 AM EDT [facility] ([facility]) Outpatient Attender: Priya Sosa MD Physical Therap y 02/15/2021 01:00:00 PM EDT [facility] ([facility]) Outpatient Attender: Mary HERNANDEZ Physical Therapy 08:45:00 AM EDT [facility] ([facility]) Outpatient Attender: Gadiel [email or web address] 05/0 08/2020 12:00:00 AM EDT - 09/21/2020 11:10:36 AM EDT [facility] Outpatient Attender: Braydon Chester ED-LABPNP 02:14:00 PM EST - 07/12/2020 02:15:00 PM EST RETURN TO WORK [facility] RETURN TO WORK Patient discharged. Office Visit Attender: Mary HERNANDEZ Physical Therapy 08:15:00 AM EST [facility] ([facility]) Office Visit Attender: Mary HERNANDEZ Physical Therapy 08:15:00 AM EST [facility] ([facility]) Office Visit Attender: Mary HERNANDEZ Physical Therapy 08:15:00 AM EST [facility] ([facility]) Immunizations Vaccine Date Status Description Data Source(s) COVID-19 VACCINE Moderna 02/02/2021 12:00:00 AM EDT completed NYSIIS Vaccine Series Complete: YESThis Data wa s Submitted to [facility] COVID-19 VACCINE Moderna 01/05/2021 12:00:00 AM EDT completed NCSIIS Vaccine Series Complete: NOThis Data was Submitted to [facility]. VARICELLA-ZOSTER [id number] 07/28/2020 12:00:00 AM EST completed [facility] Medications Medication Brand Name Start Date [...] 07/01/2020 12:00:00 AM EST ORAL active [facility] ([facility]) 2 ML Sodium Hyaluronate 10 MG/ML Prefilled Syringe [Euflexxa ] Euflexxa 06/17/2020 12:00:00 AM EST active [facility] ([facility]) atorvastatin 10 MG Oral Tablet [...] type / Coverage type Policy ID Covered libertarian ID Covered libertarian's relationship to pope Policy Pope Plan Information State Ins Fund () Workers Compensation [id number] Self [id number] [facility] () Workers Compensation [id number] Self [id number] [facility] () Workers Compensation [id number] Self [id number] [facility] Health Maintenance Organization (HMO) [id number] Self [id number] [employer] [facility] Health Maintenance Organization (HMO) [id number] Self [id number] BCBS EMPIRE JACQUELINE DIV [id number] SP [id number] [employer] [id number] SP [id number] EXCELLUS BCBS [id number] EXCELLUS BCBS [id number] Sabina YLS [id number] [facility] [id number] SP [id number] BCBS EMPIRE JACQUELINE DIV [id number] SP [id number] [employer] [id number] SP [id number] [employer] Plan [employer] Commercial [id number] Self [id number] [employer] Plan [employer] Commercial [id number] Self EMPIRE ([facility]) O [id number] S [id number] EMPIRE BLUE CROSS -O/P [id number] 18 [id number] [employer] Health Maintenance Organization (HMO) [id number] Self [facility] EMPIRE PLAN O [id number] S [id number] UNITED HEALTHCARE [id number] SP [id number] EMPIRE HEALTH CHOICE O [id number] S [id number] BCBS EMPIRE JACQUELINE DIV [id number] SP [id number] EXCELLUS [place] EMPIRE [id number] S [id number] EXCELLUS BCBS [place] EMPIRE [id number] S [id number] UNITED HEALTHCARE [id number] S [id number] BCBS EMPIRE [id number] S [id number] EMPIRE (STATE EMP) O [id number] S [id number] [facility] [id number] SP [id number] BCBS EMPIRE JACQUELINE DIV [id number] SP [id number] Problems, Conditions, and Diagnoses Code Display Name Description Problem Type Effective Dates Data Source(s) H53.122 Transient visual loss, left eye Transient visual loss, left eye Diagnosis 09/21/2020 10:13:35 AM EDT [facility] R42 Dizziness and giddiness Dizziness and giddiness [...] MINUTES 03/06/2021 12:00:00 A M EDT [facility] ([facility]) RADIOLOGIC EXAMINATION KNEE 3 VIEWS 02/15/2021 12:00:0 0 AM EDT [facility] ([facility] OFFICE OUTPATIENT VISIT 25 MINUTES 02/15/2021 12:00:00 AM EDT [facility] ([facility] ) ARTHROCENTESIS ASPIR&/INJECTION MAJOR JT/BURSA 021 12:00:00 AM EDT [facility] ([facility] OFFICE OUTPATIENT VISIT 25 MINUTES 11/25/2020 12:00:00 AM EDT [facility] ([facility]) ECG ROUTINE ECG W/LEAST 12 LDS W/I&R <td>POCT AMB EKG</td><td>Routine</td><td>09/21/2020 10:42 AM EDT</td><td> Abnormal electrocardiogram Pure hypercholesterolemia</td><td> </td> 09/21/2020 10:42:00 AM EDT Pure hypercholesterolemiaAbnormal electrocardiogram [facility] Pure hypercholesterolemia Abnormal electrocardiogram ARTHROCENTESIS ASPIR&/INJECTION MAJOR JT/BURSA 021 12:00:00 AM EST [facility] ARTHROCENTESIS ASPIR&/INJECTION MAJOR JT/BURSA 021 12:00:00 AM EST [facility] ([facility]) ARTHROCENTESIS ASPIR&/INJECTION MAJOR JT/BURSA 021 12:00:00 AM EST [facility] ([facility]) Results ID Date Data Source [id number] 07/12/2020 01:12:00 PM EST [facility] Name Value Range Interpretation Code Description Data Lea rce(s) Supporting Document(s) Respiratory specimen severe acute respir atory syndrome coronavirus 2 (SARS-CoV-2) RNA Negative (qualifier value) [facility] This lab was ordered by [facility] and reported by . ID Date Data Source [id number] 07/13/2020 07:45:00 AM EST [facility] Name Value Range Interpretation Code Description Data Lea rce(s) Supporting Document(s) SARS-CoV-2 RNA INHOUSE Negative Normal (applies to non-n umeric results) [facility] THIS IS A STATE REPORTABLE COMMUNICABLE DISEASE. Testing was performed using the [employer] COVID-19 MDx Assay. This test has been [...] be found at the following links: Providers: https://www.fda.gov/media/615242/download Patients : https://www.fda.gov/media/663567/download THIS IS A [facility] REPORTABLE COMMUNICABLE DISEASE Negative results do not [...] Patient has never smoked [facility] ([facility], [facility]) Alcohol intake 09/21/2020 12:00:00 AM EDT Ex-drinker (finding) comp leted Ex- drinker (finding) [facility] Smoking 06/17/2020 12:00:00 AM EST Patient has never smoked co mpleted Patient has never smoked [facility] ([facility] ) Vital Signs ID Date Data Source UNK Name Value Range Interpretation Code Description Data Source(s) Oxygen saturation in Arterial blood by Pulse oximetry 98 % 98 % [facility]) Body height 74 [in_i] 74 [in_i] [facility] ([facility]) 6'2" Systolic blood pressure 93 mm[Hg] 93 mm[Hg] [facility]) Diastolic blood pressure 63 mm[Hg] 63 mm[Hg] [facility] ([facility], [facility]) Heart rate 64 /min 64 /min [facility] ([facility], [facility]) Respiratory rate 18 /min 18 /min [facility] ( [facility]) Body mass index (BMI) [Ratio] 26.3 kg/m2 26.3 k g/m2 [facility] ([facility], [facility]) Body temperature 96.6 [degF] 96.6 [degF] [facility] ([facility], [facility]) Body weight 205.00 [lb_av] 205.00 [lb_av] MED[facility] T ([facility], [facility]) Body temperature 96.8 [degF] 96.8 [degF] [facility] ([facility]) Body mass index (BMI) [Ratio] 26.7 kg/m2 26.7 k g/m2 [facility] ([facility]) Body height 74 [in_i] 74 [in_i] [facility] ([facility]) 6'2" Body weight 208.00 [lb_av] 208.00 [lb_av] [facility] T ([facility]) Systolic blood pressure 128 mm[Hg] 128 mm[Hg] [facility] Diastolic blood pressure 78 mm[Hg] 78 mm[Hg] [facility] Heart rate 66 /min 66 /min [facility] Body height 188 cm 188 [...]
--- NOTE | 2021-03-06 15:44 | HPEPDOC ---
[facility] Medical History & Physical Date of Admission Mar 06, 2021 Date of Service: Mar 06, 2021 History and Physical CHIEF COMPLAINT: "I have had fever, chills, aches, and sweating" HISTORY OF PRESENT ILLNESS: 60-year-old male with a past medical history of liver carcinoma, prostate carcinoma, basal cell skin carcinoma presented to the emergency room department with complaints of fever, chills, aches and sweats. He has been experiencing the symptoms for the last 3 to 4 days. He was evaluated by the urgent care i meme and noted to have a fever and tested negative for Covid therefore was sent to the emergency room department for further evaluation. On 02/24, patient noted a tick on his right lower abdomen which was removed. He was driving to [place] for a day surgery of his left orbital basal cell carcinoma (Mohs procedure) which went well. However, he began to experience him of symptoms. His also noted to have a tick but is asymptomatic. At this junction, he denies headaches, blurry vision, shortness of breath, chest pain, abdominal pain, nausea, vomiting, problems with urination and bowel movements. He has not had any sick contacts. He has not ate anything outside of his regular diet. He has no focal weakness or joint pain. PAST MEDICAL HISTORY: 1. Liver and prostate carcinoma, in remission has follow-up imaging every 6 months and was seen by his primary oncologist in May. 2. Basal cell carcinoma of the skin PAST SURGICAL HISTORY: Bowel, liver resection, and prostatectomy. He is also had shoulder as well as elbow surgery for a fall from a ladder 5 to 6 years ago. SOCIAL HISTORY: Lives with his at home. Denies smoking, drinking, use of recreational drugs. FAMILY HISTORY: Noncontributory ALLERGIES: Please see below. REVIEW OF SYSTEMS: 10 point review of system was negative except for what is noted in the HPI HOME MEDICATIONS: Please see below. PHYSICAL EXAMINATION: VITAL SIGNS: Please see below General: Lying in bed, no acute distress Head/Neck/Throat: Trachea midline, mucous membranes moist Eyes: Sclera anicteric, PERRLA Thorax: Normal respiratory effort on room air, lungs clear to auscultation bilaterally, no wheezes/rales/rhonchi Cardiovascular: Normal rate, regular rhythm, normal S1, S2; no S3, S4, rubs/gallops/murmurs Abdomen: Bowel sounds present, soft/nontender/nondistended Genitourinary: No CVA tenderness, no [place] in place Musculoskeletal: Moving all extremities, no edema Skin: There is a right lower abdominal laceration of approximately 0.1 2.2 mm with some erythema, there is no induration. There was no lymphadenopathy appreciated in the groin, cervical, and axillary region. Neurologic: AAOx3, speech fluent and goal-directed, no focal deficits, grossly intact LABORATORY DATA: See below. IMAGING: -Chest x-ray showed no acute pathology MICROBIOLOGY: Please see below. ASSESSMENT/PLAN: #Sepsis -Bandemia, febrile (although was not documented, he was 101.3), unknown source at this time. -Hemodynamically patient is stable therefore not requiring 30 cc/kg fluid resuscitation. -Lactic acid wnl. -obtain blood cultures, Lyme titers (as well as a peripheral smear as babesiosis, although his hemoglobin is stable, can be a coinfection), ?hga, HIV, and hep panel. -Ceftriaxone and doxy for now until cultures have resulted -If patient continues to spike fevers will consider CT of the chest, abdomen/pelvis.ru #Leukopenia/thrombocytopenia -Suspect this is secondary to infectious etiology. Obtain peripheral smear. #Transaminitis -Slight elevation in AST. F/u on hep panel and ct-scan. #DVT ppx -Teds/sequentials due to thrombocytopenia. Vital Signs Vital Signs Date Time Temp Pulse Resp B/P (MAP) Pulse Ox O2 Delivery O2 Flow Rate FiO2 03/06/21 15:18 97.5 69 18 133/70 (91) 96 Laboratory Data Labs 24H Laboratory Tests 2 03/06/21 12:33: Lactic Acid Level 1.2 03/06/21 12:55: Neutrophils (%) (Auto) , Nucleated Red Blood Cells % (auto) 0.0, Neutrophils 52, Band Neutrophils 33H, Lymphocytes (Manual) 4L, Monocytes (Manual) 9H, Atypical Lymphocytes 1, Plasma Cells 1H, Platelet Estimate MARKED DECREASE, Immature Platelet Fraction 4.7, Erythrocyte Sedimentation Rate 23H, Total Bilirubin 1.2H, Direct Bilirubin 0.5H, Aspartate Amino Transf (AST/SGOT) 55H, Alanine Aminotransferase (ALT/SGPT) 61, Alkaline Phosphatase 108, Total Creatine Kinase 29L, Creatine Kinase MB < 1.0, Creatine Kinase MB Relative Index 3.45, Troponin I < 0.02, C-Reactive Protein, Quantitative 12.00H, Total Protein 6.6, Albumin 3.1L, Albumin/Globulin Ratio 0.9, Monoscreen NEGATIVE 03/06/21 13:26: POC Glucose (Misc Panel) 120H, POC Sodium (Misc Panel) 136, POC Potassium (Misc Panel) 3.7, POC Chloride (Misc Panel) 101, POC Total CO2 (Misc Panel) 23.0, POC Blood Urea Nitrogen (Misc Panel 19, POC Ionized Calcium (Misc Panel) 4.6, POC Creatinine (Misc Panel) 1.1, POC Hematocrit (Misc Panel) 38.0 CBC/BMP Laboratory Tests 03/06/21 12:55 Microbiology Microbiology 03/06/21 Respiratory Virus Panel (PCR) ([facility]) - Final, Complete Home Medications Scheduled Multivitamins (Thera M Plus Tablet) 1 Each Tablet, 1 TAB PO DAILY Scheduled PRN Acetaminophen (Acetaminophen) 325 Mg Tablet, 325 MG PO Q4H PRN for FEVER Ibuprofen (Ibuprofen) 200 Mg Tablet, 800 MG PO TID PRN for PAIN LEVEL 1-4 Allergies Coded Allergies: No Known Allergies (Unverified , 03/06/21) A-FIB/CHADSVASC A-FIB History Current/History of A-Fib/PAF?: No YENNY RAHMAN M.D. Mar 06, 2021 15:44
[2021-03-06] MEDS ORDERED: cefTRIAXone SOD 1 GM in D5W MINI-BAG PLUS 50 ML IV SCH (16:00)
[2021-03-06] MEDS ORDERED: VITMTA PO ×2 (16:17)
[2021-03-06] MEDS ORDERED: IBUP-1720 PO (16:19)
[2021-03-06] MEDS ORDERED: ACET1TAB55 PO (16:19)
[2021-03-06] MEDS ORDERED: HOME MED LIST COMPLETE! XX SCH (16:20)
[2021-03-06] MEDS ORDERED: ISOVUE-370 76% 100ML VIAL As Ordered ONE (17:00)
[2021-03-06 17:05] LABS: INR 1.13
[2021-03-06 17:06] LABS: PARTIAL THROMBOPLASTIN TIME 46.7 SECONDS (25.9-37.0)
--- NOTE | 2021-03-06 18:58 | REPVR ---
PROCEDURE INFORMATION: Exam: CT Abdomen And Pelvis With Contrast Exam date and time: 03/06/2021 5:19 PM Age: 60 years old Clinical indication: Fever; Additional info: Fever without an explinable source TECHNIQUE: Imaging protocol: Computed tomography of the abdomen and pelvis with contrast. Radiation optimization: All CT scans at this facility use at least one of these dose optimization techniques: automated exposure control; mA and/or kV adjustment per patient size (includes targeted exams where dose is matched to clinical indication); or iterative reconstruction. Contrast material: ISOVUE 370; Contrast volume: 100 ml; Contrast route: INTRAVENOUS (IV); COMPARISON: CR PORTABLE CHEST X-RAY 03/06/2021 12:46 PM FINDINGS: Lungs: No suspicious mass or airspace process in the visualized lung bases. Liver: Postsurgical changes of the liver. No focal lesion. Gallbladder and bile ducts: Gallbladder is surgically absent. Pancreas: Pancreas appears normal. No focal mass or peripancreatic inflammation. Spleen: Spleen is diffusely enlarged, without focal lesion. Adrenal glands: Adrenal glands are normal in appearance. Kidneys and ureters: Kidneys appear normal, with no stone, solid mass or hydronephrosis. Stomach and bowel: No evidence of small bowel obstruction. Suture line in the ascending colon is present without obstruction. Rectosigmoid colon is distended to 7 cm diameter with desiccated stool. No evidence of acute diverticulitis. No abnormal colonic wall thickening or pericolonic inflammation. Appendix: Appendix is not seen. No RLQ inflammation to suggest appendicitis. Intraperitoneal space: No pneumoperitoneum. No organized intraperitoneal or retroperitoneal fluid collection suggestive of abscess. Vasculature: No aortic aneurysm. Main portal and splenic veins enhance normally. Lymph nodes: No enlarged lymph nodes. Urinary bladder: Urinary bladder appears normal. Reproductive: Unremarkable as visualized. Bones/joints: Bony structures show no acute fracture or destructive process. Soft tissues: Unremarkable. IMPRESSION: 1. No explanation for fever. No surgical or inflammatory process. 2. Rectosigmoid fecal impaction measuring 7 cm 3. Postsurgical changes of the right hepatic lobe and right colon without acute complication Electronically signed by: Adrian Reaves On 03/06/2021 18:57:16 PM
--- NOTE | 2021-03-06 19:01 | REPVR ---
PROCEDURE INFORMATION: Exam: CT Chest Without Contrast; Diagnostic Exam date and time: 03/06/2021 5:19 PM Age: 60 years old Clinical indication: Fever; Additional info: Fever without an explinable source TECHNIQUE: Imaging protocol: Diagnostic computed tomography of the chest without contrast. 3D rendering (Not supervised by radiologist): MIP and/or 3D reconstructed images were created by the technologist. Radiation optimization: All CT scans at this facility use at least one of these dose optimization techniques: automated exposure control; mA and/or kV adjustment per patient size (includes targeted exams where dose is matched to clinical indication); or iterative reconstruction. COMPARISON: CR PORTABLE CHEST X-RAY 03/06/2021 12:46 PM FINDINGS: Lungs: Atelectasis is present in the dependent portions of the lungs. No suspicious lung mass or air space process. No central endobronchial lesion. Pleural spaces: No pleural effusion or pneumothorax. Heart: No overt cardiac enlargement or abnormal volume of pericardial fluid. Pulmonary arteries: Pulmonary vascular/interstitial pattern does not suggest active pulmonary edema. Aorta: Thoracic aorta is ectatic and mildly atherosclerotic. No focal saccular aneurysm. Proximal descending portion measures 3.3 cm Lymph nodes: Small, nonspecific mediastinal nodes are present. Bones/joints: Bony structures show no acute fracture or destructive process. Soft tissues: Unremarkable. Other findings: Limited study without IV contrast. IMPRESSION: 1. No acute or concerning thoracic abnormality to explain the clinical presentation of fever. 2. Mild ectasia of the aortic arch and proximal descending aorta Electronically signed by: Adrian Reaves On 03/06/2021 19:00:44 PM
--- NOTE | 2021-03-06 19:55 | ECGEPIP ---
[facility] - ED Test Date: 2021-03-06 Pat Name: BREE GARCÍA Department: Room: - Gender: Male Wood Stainer: LADAN : 1960 Requested By: JOEL SARGENT PA-C Order Number: [id number] Reading MD: Henrry Casillas Measurements Intervals [place] Rate: 71 P: 67 IA: 170 QRS: -47 QRSD: 104 T: 12 QT: 358 QTc: 389 Interpretive Statements Normal sinus rhythm Borderline left axis deviation Incomplete right bundle branch block Possible Anteroseptal infarct , age undetermined NO PRIORS FOR COMPARISON Electronically Signed on 03-06-2021 19:55:05 EDT by Henrry Casillas
[2021-03-06] MEDS: DOXYCYCLINE HYCLATE 100MG TABLET PO SCH ×2 (21:00→22:05)
[2021-03-07 08:12] LABS: HEMATOCRIT 35.8 % (42.0-52.0); MEAN CORPUSCULAR HEMOGLOBIN 30.2 pg (27.0-33.0); MEAN CORPUSCULAR HGB CONC 35.5 g/dl (32.0-36.5); RED BLOOD COUNT 4.21 10^6/uL (4.30-6.10); WHITE BLOOD COUNT 1.8 10^3/uL (4.0-10.0)
[2021-03-07 08:15] LABS: HEMOGLOBIN 12.7 g/dl (13.5-17.5); PLATELET COUNT, AUTOMATED 38 10^3/uL (150-450)
[2021-03-07 08:37] LABS: ALBUMIN 2.5 GM/DL (3.2-5.2); ALT/SGPT 54 U/L (12-78); BILIRUBIN,TOTAL 0.8 MG/DL (0.2-1.0); BLOOD UREA NITROGEN 20 MG/DL (7-18); CALCIUM LEVEL 8.5 MG/DL (8.8-10.2); CARBON DIOXIDE LEVEL 27 MEQ/L (21-32); CHLORIDE LEVEL 109 MEQ/L (98-107); CREATININE FOR GFR 0.87 MG/DL (0.70-1.30); GLOMERULAR FILTRATION RATE > 60.0 (>49); GLUCOSE, FASTING 88 MG/DL (70-100); MAGNESIUM LEVEL 1.9 MG/DL (1.8-2.4); PHOSPHORUS LEVEL 1.8 MG/DL (2.5-4.9); POTASSIUM SERUM 3.5 MEQ/L (3.5-5.1); SODIUM LEVEL 141 MEQ/L (136-145); TOTAL PROTEIN 5.7 GM/DL (6.4-8.2)
[2021-03-07 11:11] LABS: HEPATITIS B CORE ANTIBODY IGM NEGATIVE (NEGATIVE); HEPATITIS B SURFACE ANTIGEN NEGATIVE (NEGATIVE); HIV 1&2 SCREEN CENTAUR NEGATIVE (NEGATIVE)
--- NOTE | 2021-03-07 11:52 | IPNPDOC ---
Subjective Date Seen The patient was seen on 03/07/21. Subjective Chief Complaint/HPI Patient was seen and examined at bedside this morning. He had no new complaints. He reported feeling well and was explained his blood work results including CBC, and imaging findings. He denies fever, chills, abdominal pain, nausea, vomiting, problems with urination and bowel movements Objective Physical Examination Other physical findings General: Lying in bed, no acute distress Head/Neck/Throat: Trachea midline, mucous membranes moist Eyes: Sclera anicteric, PERRLA Thorax: Normal respiratory effort on room air, lungs clear to auscultation bilaterally, no wheezes/rales/rhonchi Cardiovascular: Normal rate, regular rhythm, normal S1, S2; no S3, S4, rubs/gallops/murmurs Abdomen: Bowel sounds present, soft/nontender/nondistended Genitourinary: No CVA tenderness, no Oreilly in place Musculoskeletal: Moving all extremities, no edema Skin: There is a right lower abdominal erythema of approximately 0.1 2.2 mm, there is no induration. Neurologic: AAOx3, speech fluent and goal-directed, no focal deficits, grossly intact Assessment /Plan Assessment #Sepsis -Fever has defervesced. We will add differential to this morning CBC to assess bandemia. -Bandemia, febrile (although was not documented, he was 101.3), unknown source at this time. -Hemodynamically patient is stable therefore not requiring 30 cc/kg fluid resuscitation. -Lactic acid wnl. -obtain blood cultures, Lyme titers (as well as a peripheral smear as babesiosis, although his hemoglobin is stable, can be a coinfection), HIV, and hep panel. -Ceftriaxone and doxy for now until cultures have resulted -If patient continues to spike fevers will consider CT of the chest, abdomen/pelvis.ru #Pancytopenia -This morning his WBC, hemoglobin dropped, and platelets dropped further. Suspec t this is secondary to infectious etiology. Peripheral smear fairly unremarkable. We will obtain hematology consultation to ensure there is no secondary pathology causing his pancytopenia. -No indications for transfusions at this time. #Transaminitis -Slight elevation in AST. Hep panel and CT scan unremarkable. #DVT ppx -Teds/sequentials due to thrombocytopenia. Plan/VTE VTE Prophylaxis Ordered?: Yes VS, I&O, 24H, Fishbone Vital Signs/I&O Vital Signs Date Time Temp Pulse Resp B/P (MAP) Pulse Ox O2 Delivery O2 Flow Rate FiO2 03/07/21 09:46 69 16 116/73 (87) 96 Room Air 03/07/21 07:54 97.6 Laboratory Data 24H LABS Laboratory Tests 2 03/06/21 12:33: Lactic Acid Level 1.2 03/06/21 12:55: Neutrophils (%) (Auto) , Nucleated Red Blood Cells % (auto) 0.0, Neutrophils 52, Band Neutrophils 33H, Lymphocytes (Manual) 4L, Monocytes (Manual) 9H, Atypical Lymphocytes 1, Plasma Cells 1H, Platelet Estimate MARKED DECREASE, Differential Slide Review Report, Immature Platelet Fraction 4.7, Peripheral Blood Smear Path Consult PERIPHERAL SMEAR, Erythrocyte Sedimentation Rate 23H, Total Bilirubin 1.2H, Direct Bilirubin 0.5H, Aspartate Amino Transf (AST/SGOT) 55H, Alanine Aminotransferase (ALT/SGPT) 61, Alkaline Phosphatase 108, Total Creatine Kinase 29L, Creatine Kinase MB < 1.0, Creatine Kinase MB Relative Index 3.45, Troponin I < 0.02, C-Reactive Protein, Quantitative 12.00H, Total Protein 6.6, Albumin 3.1L, Albumin/Globulin Ratio 0.9, Monoscreen NEGATIVE 03/06/21 13:26: POC Glucose (Misc Panel) 120H, POC Sodium (Misc Panel) 136, POC Potassium (Misc Panel) 3.7, POC Chloride (Misc Panel) 101, POC Total CO2 (Misc Panel) 23.0, POC Blood Urea Nitrogen (Misc Panel 19, POC Ionized Calcium (Misc Panel) 4.6, POC Creatinine (Misc Panel) 1.1, POC Hematocrit (Misc Panel) 38.0 03/06/21 16:13: Hepatitis A IgM Antibody NEGATIVE, Hepatitis B Surface Antigen NEGATIVE, Hepatitis B Core IgM Antibody NEGATIVE, Hepatitis C Antibody Index 0.0, HIV Antigen/Antibody Combo Qual NEGATIVE 03/06/21 16:14: Prothrombin Time 15.0H, Prothromb Time International Ratio 1.13, Activated Partial Thromboplast Time 46.7H 03/07/21 07:55: Nucleated Red Blood Cells % (auto) 0.0, Anion Gap 5L, Glomerular Filtration Rate > 60.0, Calcium Level 8.5L, Phosphorus Level 1.8L, Magnesium Level 1.9, Total Bilirubin 0.8, Aspartate Amino Transf (AST/SGOT) 47H, Alanine Aminotransferase (ALT/SGPT) 54, Alkaline Phosphatase 114, Total Protein 5.7L, Albumin 2.5L, Albumin/Globulin Ratio 0.8 CBC/BMP Laboratory Tests 03/06/21 12:55 03/07/21 07:55 Microbiology Microbiology 03/06/21 Blood Culture, Received Pending 03/06/21 Blood Culture, Received Pending 03/06/21 Respiratory Virus Panel (PCR) ([facility]) - Final, Complete YENNY RAHMAN M.D. Mar 07, 2021 11:52
[2021-03-07 13:21] LABS: ATYPICAL LYMPH 4 % (0-5); EOSINOPHILS 1 % (0-3); LYMPHOCYTES 27 % (16-44); MONOCYTES 4 % (0-5); NEUTROPHILS 62 % (28-66); PLATELET ESTIMATE MARKED DECREASE (NORMAL)
[2021-03-07] MEDS: DOXYCYCLINE HYCLATE 100MG TABLET PO SCH (13:42)
[2021-03-07 14:30] VITALS: BP 129/74
--- NOTE | 2021-03-07 19:19 | CR.PDOC ---
General Date of Consultation: Mar 07, 2021 Referring Provider: YENNY RAHMAN M.D. Attending Physician: YENNY RAHMAN M.D. Consultation REASON FOR CONSULTATION: Pancytopenia. HISTORY OF PRESENT ILLNESS: 60-year-old admitted for fever, chills and generalized body achiness. History of tick bite Feb 24, 2021. Treated with ceftriaxone and doxycycline. The patient was seen today and reports resolution of fevers. T-max 101.3 last night. ALLERGIES: Please see below. HOME MEDICATIONS: Please see below. PAST MEDICAL HISTORY: Small bowel carcinoid with liver metastases on follow-up at [facility]. History of prostate cancer treated with prostatectomy. Basal cell skin cancer SOCIAL HISTORY: . Works for the [employer]. REVIEW OF SYSTEMS: CONSTITUTIONAL: Fever and chills before admission. No weight loss. History of tick bite. Rest of review of systems negative. PHYSICAL EXAMINATION: VITAL SIGNS: Please see below. GENERAL APPEARANCE: Lying comfortably in bed not in distress. HEENT: Pinkish conjunctive anicteric sclerae. RESPIRATORY: Lungs are clear with no rales rhonchi no wheeze. CARDIOVASCULAR: S1/S2 regular. ABDOMEN: Soft, nontender, no guarding. Positive bowel sounds EXTREMITIES: No pedal edema. No clubbing. No cyanosis NEUROLOGICAL: Alert. Oriented x3. PSYCHIATRIC: Normal mood. LABORATORY DATA: Please see below. ASSESSMENT/PLAN: Pancytopenia likely related to ongoing infection. Peripheral smear reviewed Mar 07, 2021 showed decreased lymphocytes and decreased platelet count. No abnormal cells noted. CT chest abdomen pelvis Mar 06, 2021 showed no acute findings. Continue monitoring blood counts daily. Consider blood transfusion if platelet count below 10 or below 50 and actively bleeding. May consider bone marrow aspiration and biopsy if pancytopenia persistent or worsening. Thank you for referring Mr. Shaggy Bernabe. Vital Signs/I&O Vital Signs Date Time Temp Pulse Resp B/P (MAP) Pulse Ox O2 Delivery O2 Flow Rate FiO2 03/07/21 14:30 98.0 62 16 129/74 (92) 98 Room Air Laboratory Data Labs 24H Laboratory Tests 2 03/07/21 07:55: Neutrophils (%) (Auto) , Nucleated Red Blood Cells % (auto) 0.0, Neutrophils 62, Band Neutrophils 2, Lymphocytes (Manual) 27, Monocytes (Manual) 4, Eosinophils (Manual) 1, Atypical Lymphocytes 4, Red Blood Cell Morphology NORMAL, Platelet Estimate MARKED DECREASE, Anion Gap 5L, Glomerular Filtration Rate > 60.0, Calcium Level 8.5L, Phosphorus Level 1.8L, Magnesium Level 1.9, Total Bilirubin 0.8, Aspartate Amino Transf (AST/SGOT) 47H, Alanine Aminotransferase (ALT/SGPT) 54, Alkaline Phosphatase 114, Total Protein 5.7L, Albumin 2.5L, Albumin/Globulin Ratio 0.8 03/07/21 15:51: CBC/BMP Laboratory Tests 03/07/21 07:55 Microbiology Microbiology 03/06/21 Blood Culture - Preliminary, Resulted No growth after 24 hours . All specim... 03/06/21 Blood Culture - Preliminary, Resulted No growth after 24 hours . All specim... 03/06/21 Respiratory Virus Panel (PCR) ([facility]) - Final, Complete Allergies Coded Allergies: No Known Allergies (Unverified , 03/06/21) Home Medications Scheduled Doxycycline Hyclate (Doxycycline Hyclate) 100 Mg Tablet, 100 MG PO BID, #28 Multivitamins (Thera M Plus Tablet) 1 Each Tablet, 1 TAB PO DAILY, (Reported) Scheduled PRN Acetaminophen (Acetaminophen) 325 Mg Tablet, 325 MG PO Q4H PRN for FEVER, (Reported) Ibuprofen (Ibuprofen) 200 Mg Tablet, 800 MG PO TID PRN for PAIN LEVEL 1-4, (Reported) JF RAYO MD FACP Mar 07, 2021 19:19
--- NOTE | 2021-03-07 19:42 | CR.PDOC ---
General Date of Consultation: Mar 07, 2021 Referring Provider: YENNY RAHMAN M.D. Primary Care Physician Ed Reason Attending Physician: Bernadette Mack MD Consultation REASON FOR CONSULTATION/CHIEF COMPLAINT: Tick bite, fever, chills, myalgia, malaise. HISTORY OF PRESENT ILLNESS: Mr. Bernabe is a 60-year-old male with a h/o BCC, SCC, prostate cancer, and carcinoid cancer who presented to the ED with fever, chills, diaphoresis, GAUTHIER, myalgia, and arthralgia with associated SOB for the past 5 days. The pt reports removing a tick bite on 02/24 [address] to [place] for his BCC excision. Symptoms began on Sun, 03/02, and continued to progress. He initially responded to Ibuprofen, but after 1 day, Ibuprofen nor Tylenol provided any relief. On Sat evening, 03/05, the pt reports breaking into an intense sweat that relieved some of his symptoms but returned the following morning. On Sun, 03/06, he felt worse and decided to go to Urgent Care, where they were promptly advised to go to the ED. In the ED, the pt reached a peak temp. of 101.3; all other vitals remained stable. He was given IV fluids and antibiotics, which made him feel better. Today, the patient was seen by ID at bedside. The pt denies any acute changes overnight. He still has night sweats, but denies any fever, chills, cough, SOB, myalgias, or arthralgias. He feels better and is anxious to know the source of his symptoms. ALLERGIES: Please see below. HOME MEDICATIONS: Please see below. 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 Lives in area prone to tick bites. 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 Lost approx 10lbs in the past week 2/2 malaise and decreased appetite. Denies fever, chills. HEENT: Denies GAUTHIER, changes in vision, blurry vision, neck stiffness. CARDIOVASCULAR: Denies CP, palpitations. RESPIRATORY: Denies SOB, cough, hemoptysis, pleuritic pain. GENITOURINARY: Had 1 episode of penis swelling yesterday (03/06) for approx 1 hour. Denies dysuria, pyuria, hematuria. MUSCULOSKELETAL: Denies pain, numbness, tingling in all 4 extremities. GASTROINTESTINAL: Denies abdominal pain, N/V/D, constipation, hematemesis, hematochezia. SKIN: Will get occasional rash/hives in upper chest, shoulders, and upper back. Denies any new lumps or bumps. ALLERGIC/IMMUNOLOGIC: Chronic rash in upper chest, shoulders, and upper back sensitive to heat. PHYSICAL EXAMINATION: VITAL SIGNS: Please see below. GENERAL APPEARANCE: Pt is a pleasant male sitting upright in bed. He appears younger than stated age in no acute distress and afebrile. HEENT: NC, AT. Noninjected conjunctiva. Sclera nonicteric. NECK: No adenopathy appreciated. RESPIRATORY: Clear to auscultation bilaterally. No wheezes, rales, or rhonchi appreciated. CARDIOVASCULAR: RRR. Normal S1, S2. No murmurs, rubs, or gallops appreciated. ABDOMEN: Non-engorged tick bite in RLQ. Non-tender to palpation. SKIN: Multiple erythematous macules present in upper chest, shoulders, and upper back. Lipoma appreciated in right lumbar region. NEUROLOGICAL: No focal deficits appreciated. PSYCHIATRIC: Mood appears stable. LABORATORY DATA: Please see below. IMAGIN03/06/2021 CXR Impression: "No acute cardiopulmonary process appreciated." 03/06/2021 CT Ab/Pelvis Impression: "1. No explanation for fever. No surgical or inflammatory process. 2. Rectosigmoid fecal impaction measuring 7 cm 3. Postsurgical changes of the right hepatic lobe and right colon without acute complication" 03/06/2021 CT Chest Impression: "1. No acute or concerning thoracic abnormality to explain the clinical presentation of fever. 2. Mild ectasia of the aortic arch and proximal descending aorta." PATHOLOGY: 03/07/2021 Peripheral Blood Smear: "Moderate thrombocytopenia. Leukopenia associated with decreased lymphocytes. Erythrocytes appear normal in number and are overall normochromic. Nucleated red cells are not seen. No blast forms are identified." ASSESSMENT/PLAN: Mr. Bernabe is a 60-year-old who presents with a 5-day h/o fever, chills, diaphoresis, GAUTHIER, myalgia, arthralgia, and pancytopenia concerning for possible tick borne infection. # Tick borne infection 2/2 anaplasmosis/ehrlichiosis vs lyme vs babesiosis - Pt presents with fever, chills, diaphoresis, GAUTHIER, myalgia, arthralgia after 5 days of removing a tick from his RLQ. - Leukopenia, thrombocytopenia, and transaminitis present. - CXR, CT ab/pelvis, CT chest negative. - Peripheral blood smear showed thrombocytopenia and leukopenia but no abnormal cells. - Hepatitis panel, monoscreen, and HIV negative. - Preliminary blood cultures X2 negative. - Ceftriaxone discontinued continues on PO doxycycline. - In the absence of erythema migrans and non-engorged tick bite, lyme less likely; early disseminated disease would occur weeks to months after the tick bite. - Labs do not indicate hemolytic anemia; babesiosis less likely. - Anaplasmosis and ehrlichiosis presents more acutely than lyme or babesiosis; more likely anaplasmosis due to lab findings and negative imaging results. - C/w repeat CBC, CMP. - C/w doxycycline 100mg BID; doxycycline will cover anaplasmosis, ehrlichiosis, lyme Will need to complete 10-14 day course. Anaplasmosis, ehrlichiosis, lyme and babesiosis PCR pending. - Should f/u outpt with Dr. Mack within 1 week of discharge to discuss PCR results and completion of antibiotic regimen. Disposition: Pending clinical improvement. Vital Signs/I&O Vital Signs Date Time Temp Pulse Resp B/P (MAP) Pulse Ox O2 Delivery O2 Flow Rate FiO2 03/07/21 14:30 98.0 62 16 129/74 (92) 98 Room Air Laboratory Data Labs 24H Laboratory Tests 2 03/07/21 07:55: Neutrophils (%) (Auto) , Nucleated Red Blood Cells % (auto) 0.0, Neutrophils 62, Band Neutrophils 2, Lymphocytes (Manual) 27, Monocytes (Manual) 4, Eosinophils (Manual) 1, Atypical Lymphocytes 4, Red Blood Cell Morphology NORMAL, Platelet Estimate MARKED DECREASE, Anion Gap 5L, Glomerular Filtration Rate > 60.0, Ca lcium Level 8.5L, Phosphorus Level 1.8L, Magnesium Level 1.9, Total Bilirubin 0.8, Aspartate Amino Transf (AST/SGOT) 47H, Alanine Aminotransferase (ALT/SGPT) 54, Alkaline Phosphatase 114, Total Protein 5.7L, Albumin 2.5L, Albumin/Globulin Ratio 0.8 03/07/21 15:51: CBC/BMP Laboratory Tests 03/07/21 07:55 Microbiology Microbiology 03/06/21 Blood Culture - Preliminary, Resulted No growth after 24 hours . All specim... 03/06/21 Blood Culture - Preliminary, Resulted No growth after 24 hours . All specim... 03/06/21 Respiratory Virus Panel (PCR) ([facility]) - Final, Complete Allergies Coded Allergies: No Known Allergies (Unverified , 03/06/21) Home Medications Scheduled Doxycycline Hyclate (Doxycycline Hyclate) 100 Mg Tablet, 100 MG PO BID, #28 Multivitamins (Thera M Plus Tablet) 1 Each Tablet, 1 TAB PO DAILY, (Reported) Scheduled PRN Acetaminophen (Acetaminophen) 325 Mg Tablet, 325 MG PO Q4H PRN for FEVER, (Reported) Ibuprofen (Ibuprofen) 200 Mg Tablet, 800 MG PO TID PRN for PAIN LEVEL 1-4, (Reported) GME ATTESTATION GME ATTESTATION My faculty preceptor for this patient encounter was physically present during the encounter and was fully available. All aspects of the patient interview, examination, medical decision making process, and medical care plan development were reviewed and approved by the faculty preceptor. The faculty preceptor is aware and concurs with the plan as stated in the body of this note and will attest to such by his/her cosignature. SAUL BARTH OMS-3 Mar 07, 2021 19:42 Bernadette Mack MD Mar 10, 2021 21:21
[2021-03-07] MEDS ORDERED: K-PHOS ORIGINAL (POT.ACID PHOSPHATE) 500MG TAB PO ONE (20:00)
[2021-03-07 22:00] VITALS: BP 124/69
[2021-03-07] MEDS ORDERED: DOXYCYCLINE HYCLATE 100MG TABLET PO ONE (23:15)
[2021-03-08] MEDS ORDERED: IBUPROFEN 800 MG TAB PO PRN (03:20)
[2021-03-08 05:57] LABS: BASO % 0.8 % (0.0-1.0); EOS % 1.6 % (0.0-3.0); HEMATOCRIT 33.6 % (42.0-52.0); HEMOGLOBIN 11.9 g/dl (13.5-17.5); LYMPH % 38.5 % (24.0-44.0); MEAN CORPUSCULAR HEMOGLOBIN 29.8 pg (27.0-33.0); MEAN CORPUSCULAR HGB CONC 35.4 g/dl (32.0-36.5); MONO # 0.4 10^3/uL (0.0-0.8); MONO % 17.4 % (2.0-8.0); NEUTROPHILS % 41.3 % (36.0-66.0); WHITE BLOOD COUNT 2.5 10^3/uL (4.0-10.0)
[2021-03-08 06:04] LABS: PLATELET COUNT, AUTOMATED 58 10^3/uL (150-450)
[2021-03-08 06:24] LABS: ALBUMIN 2.5 GM/DL (3.2-5.2); ALT/SGPT 45 U/L (12-78); BILIRUBIN,TOTAL 0.5 MG/DL (0.2-1.0); BLOOD UREA NITROGEN 20 MG/DL (7-18); CALCIUM LEVEL 8.3 MG/DL (8.8-10.2); CARBON DIOXIDE LEVEL 29 MEQ/L (21-32); CHLORIDE LEVEL 108 MEQ/L (98-107); CREATININE FOR GFR 0.78 MG/DL (0.70-1.30); GLOMERULAR FILTRATION RATE > 60.0 (>49); GLUCOSE, FASTING 92 MG/DL (70-100); MAGNESIUM LEVEL 1.8 MG/DL (1.8-2.4); PHOSPHORUS LEVEL 2.7 MG/DL (2.5-4.9); POTASSIUM SERUM 3.7 MEQ/L (3.5-5.1); SODIUM LEVEL 141 MEQ/L (136-145); TOTAL PROTEIN 5.3 GM/DL (6.4-8.2)
[2021-03-08] MEDS: DOXYCYCLINE HYCLATE 100MG TABLET PO SCH (08:44)
[2021-03-08] MEDS ORDERED: DOXY100T PO (11:00)
[2021-03-08 17:09] LABS: Lyme Disease IgG/IgM Antibodie <0.91 ISR (0.00-0.90); Lyme Disease IgM Ab Quantitati <0.80 index (0.00-0.79)
--- NOTE | 2021-03-11 06:15 | DS.PDOC ---
Discharge Summary General Date of Admission Mar 06, 2021 at 11:26 Date of Discharge 03/07/21 Discharge Summary PROCEDURES PERFORMED DURING STAY: [None]. 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 Sepsis. Transaminitis COMPLICATIONS/CHIEF COMPLAINT: Bandemia. HOSPITAL COURSE: Mr. Bernabe is a 60-year-old male with a h/o BCC, SCC, prostate cancer, and carcinoid cancer with h/o liver resection presented to the ED with fever, chills, diaphoresis, GAUTHIER, myalgia, and arthralgia with associated SOB for 5 days. The pt reports removing a tick bite on 02/24 [address] to [place] for his BCC excision. Symptoms began on Sun, 03/02, and continued to progress. He initially responded to Ibuprofen, but after 1 day, Ibuprofen nor Tylenol provided any relief. On Sat evening, 03/05, the pt reports breaking into an intense sweat that relieved some of his symptoms but returned the following morning. On Sun, 03/06, he felt worse and decided to go to Urgent Care, where they were promptly advised to go to the ED. In the ED, the pt reached a peak temp. of 101.3; all other vitals remained stable. He was given IV fluids and ceftriaxone and doxycycline which made him feel better. Labs were significant of pancytopenia with bandemia and transaminitis. ID and hemato oncology were consulted. CXR, CT ab/pelvis, CT chest negative. Peripheral blood smear showed thrombocytopenia and leukopenia but no abnormal cells. Hepatitis panel, monoscreen, and HIV negative. Preliminary blood cultures X2 negative. As per ID: In the absence of erythema migrans and non-engorged tick bite, lyme less likely; early disseminated disease would occur weeks to months after the tick bite. Labs do not indicate hemolytic anemia so babesiosis less likely. Anaplasmosis and ehrlichiosis presents more acutely than lyme or babesiosis; more likely anaplasmosis due to lab findings and negative imaging results. Ceftriaxone was discontinued and only doxycycline was continued by ID. Doxycycline will cover anaplasmosis, ehrlichiosis, lyme. Will need to complete 10-14 day course. Anaplasmosis, ehrlichiosis, lyme and babesiosis PCR pending. As per oncology if pancytopenia persists after treatment of infection will need bone marrow biopsy. DISCHARGE MEDICATIONS: Please see below. ALLERGIES: Please see below. PHYSICAL EXAMINATION ON DISCHARGE: VITAL SIGNS: Please see below. General: Lying in bed, no acute distress Head/Neck/Throat: Trachea midline, mucous membranes moist Eyes: Sclera anicteric, PERRLA Thorax: Normal respiratory effort on room air, lungs clear to auscultation bilaterally, no wheezes/rales/rhonchi Cardiovascular: Normal rate, regular rhythm, normal S1, S2; no rubs/martino ps/murmurs Abdomen: Bowel sounds normal, soft/nontender/nondistended Genitourinary: No CVA tenderness, no Ore[place] in place Skin: There is a right lower abdominal erythema of approximately 0.1 2.2 mm, there is no induration. Neurologic: AAOx3, speech fluent and goal-directed, no focal deficits, grossly intact LABORATORY DATA: Please see below. IMAGIN03/06/2021 CXR Impression: "No acute cardiopulmonary process appreciated." 03/06/2021 CT Ab/Pelvis Impression: "1. No explanation for fever. No surgical or inflammatory process. 2. Rectosigmoid fecal impaction measuring 7 cm 3. Postsurgical changes of the right hepatic lobe and right colon without acute complication" 03/06/2021 CT Chest Impression: "1. No acute or concerning thoracic abnormality to explain the clinical presentation of fever. 2. Mild ectasia of the aortic arch and proximal descending aorta." PATHOLOGY: 03/07/2021 Peripheral Blood Smear: "Moderate thrombocytopenia. Leukopenia associated with decreased lymphocytes. Erythrocytes appear normal in number and are overall normochromic. Nucleated red cells are not seen. No blast forms are identified." ACTIVITY: [As tolerated]. DIET: Regular DISPOSITION: 01 Home, Self-Care. DISCHARGE INSTRUCTIONS: DR Mack in [address] Alas in 1 week. PMD in 2 weeks ITEMS TO FOLLOWUP ON ON OUTPATIENT: Anaplasmosis, ehrlichiosis, lyme and babesiosis PCR pending. Follow up CBC. DISCHARGE CONDITION: [Stable]. TIME SPENT ON DISCHARGE: 35 minutes. Vital Signs/I&Os Vital Signs Date Time Temp Pulse Resp B/P (MAP) Pulse Ox O2 Delivery O2 Flow Rate FiO2 03/07/21 22:00 98.3 65 124/69 (87) 98 Room Air 03/07/21 14:30 16 Microbiology Microbiology 03/06/21 Blood Culture - Preliminary, Resulted No Growth after 72 hours. All specime... 03/06/21 Blood Culture - Preliminary, Resulted No Growth after 72 hours. All specime... 03/06/21 Respiratory Virus Panel (PCR) ([facility]) - Final, Complete Discharge Medications Scheduled Doxycycline Hyclate (Doxycycline Hyclate) 100 Mg Tablet, 100 MG PO BID Multivitamins (Thera M Plus Tablet) 1 Each Tablet, 1 TAB PO DAILY, (Reported) Scheduled PRN Acetaminophen (Acetaminophen) 325 Mg Tablet, 325 MG PO Q4H PRN for FEVER, (Rep orted) Ibuprofen (Ibuprofen) 200 Mg Tablet, 800 MG PO TID PRN for PAIN LEVEL 1-4, (Reported) Allergies Coded Allergies: No Known Allergies (Unverified , 03/06/21) Mery Watson MD Mar 11, 2021 06:15
[2021-03-11 07:07] LABS: BABESIA MICROTI PCR Negative (Negative)
== END 2021-03-08 13:39 | disposition home or self-care (01) ==
LOC: M ED 11:25 → M ED INP 11:26 → ENRESERV 03-07 12:54 → M MSPAV 03-07 14:32
PROVIDERS: ADMIT Internal Medicine; ATTEND Internal Medicine Nephrology
DX: D72.825 Bandemia (principal); D72.819 Decreased white blood cell count, unspecified; D69.6 Thrombocytopenia, unspecified; R74.9 Abnormal serum enzyme level, unspecified; D61.818 Other pancytopenia; Z85.46 Personal history of malignant neoplasm of prostate; Z79.899 Other long term (current) drug therapy
CPT/HCPCS: 36415; 71045; 71250; 74177; 80047; 80053; 80076; 82550; 82553; 83605; 83735; 84100; 84484; 85007; 85025; 85027; 85049; 85055; 85610; 85652; 85730; 86140; 86308; 86617; 86705; 86709; 86803; 87040; 87340; 87389; 87798; 93005; 96365; 96375; 99285; J0696; Q9967

== ENCOUNTER → 2021-03-10 | Outpatient (CLI) | payer BC, OTHER ==
[~2021-03-10] MED LIST changes: +ACET1TAB55 PO; -CONRAY-43 43% 50ML VIAL (Q9960) As Ordered ONE; +DOXY100T PO; +IBUP-1720 PO; -LIDOCAINE 1% MDV 20ML VIAL As Ordered ONE; -TRIAMCINOLONE ACETONIDE SUSP 40 MG/ML VIAL (J3301) As Ordered ONE; +VITMTA PO
[2021-03-10 09:57] LABS: HEMATOCRIT 34.9 % (42.0-52.0); HEMOGLOBIN 12.2 g/dl (13.5-17.5); PLATELET COUNT, AUTOMATED 166 10^3/uL (150-450); RED BLOOD COUNT 4.06 10^6/uL (4.30-6.10); WHITE BLOOD COUNT 5.3 10^3/uL (4.0-10.0)
[2021-03-10 10:28] LABS: LYMPHOCYTES 30 % (16-44); MONOCYTES 4 % (0-5); NEUTROPHILS 64 % (28-66)
[2021-03-10 10:29] LABS: PLATELET ESTIMATE NORMAL (NORMAL)
== END ==
LOC: M LAB 09:17
PROVIDERS: ATTEND Internal Medicine Nephrology
DX: D61.818 Other pancytopenia (principal)

== ENCOUNTER → 2021-12-02 | Outpatient (CLI) | payer BC, OTHER ==
[~2021-12-02] MED LIST changes: +ISOVUE-300 61% 50ML VIAL As Ordered ONE; +LIDOCAINE 1% MDV 20ML VIAL As Ordered ONE; +PROHANCE 279.3MG/ML 5ML VIAL As Ordered ONE; +ZYRTTAB8 PO
== END ==
LOC: M RADPRO 07:06
PROVIDERS: ATTEND Orthopaedic Surgery
DX: R93.7 Abnormal findings on diagnostic imaging of other parts of musculoskeletal system (principal)
CPT/HCPCS: 27093; 73723; 77002; A9576; Q9967

== ENCOUNTER → 2023-03-15 | Outpatient (CLI) | payer BC, OTHER ==
[~2023-03-15] MED LIST changes: -ISOVUE-300 61% 50ML VIAL As Ordered ONE; -LIDOCAINE 1% MDV 20ML VIAL As Ordered ONE; -PROHANCE 279.3MG/ML 5ML VIAL As Ordered ONE
[2023-03-15 11:28] LABS: BASO % 0.7 % (0.0-1.0); EOS # 0.1 10^3/uL (0.0-0.5); EOS % 2.7 % (0.0-3.0); HEMATOCRIT 43.1 % (42.0-52.0); HEMOGLOBIN 14.1 g/dl (13.5-17.5); LYMPH # 0.6 10^3/uL (1.5-5.0); LYMPH % 14.4 % (24.0-44.0); MEAN CORPUSCULAR HEMOGLOBIN 29.4 pg (27.0-33.0); MEAN CORPUSCULAR HGB CONC 32.7 g/dl (32.0-36.5); MONO # 0.4 10^3/uL (0.0-0.8); MONO % 9.5 % (2.0-8.0); NEUTROPHILS # 3.2 10^3/uL (1.5-8.5); NEUTROPHILS % 72.2 % (36.0-66.0); PLATELET COUNT, AUTOMATED 251 10^3/uL (150-450); RED BLOOD COUNT 4.79 10^6/uL (4.30-6.10); WHITE BLOOD COUNT 4.4 10^3/uL (4.0-10.0)
[2023-03-15 11:41] LABS: ERYTHROCYTE SEDIMENTATION RATE 66 mm/hr (0-20)
[2023-03-15 11:57] LABS: RHEUMATOID FACTOR QUANT < 3.5 IU/ML (<14)
[2023-03-15 11:58] LABS: ALBUMIN 3.6 G/DL (3.2-5.2); ALKALINE PHOSPHATASE 712 U/L (46-116); ALT/SGPT 179 U/L (7.0-40); AST/SGOT 131 U/L (<34); BILIRUBIN,TOTAL 1.4 MG/DL (0.3-1.2); BLOOD UREA NITROGEN 20 MG/DL (9-23); CALCIUM LEVEL 9.7 MG/DL (8.3-10.6); CARBON DIOXIDE LEVEL 30 MMOL/L (20-31); CHLORIDE LEVEL 103 MMOL/L (98-107); COMPLEMENT C3 197.9 MG/DL (90.0-170.0); CREATININE FOR GFR 0.84 MG/DL (0.70-1.30); GLOMERULAR FILTRATION RATE > 60.0 (>49); GLUCOSE, FASTING 91 MG/DL (74-106); POTASSIUM SERUM 4.6 MMOL/L (3.5-5.1); SODIUM LEVEL 141 MMOL/L (136-145); TOTAL PROTEIN 7.2 G/DL (5.7-8.2)
[2023-03-15 11:59] LABS: TOTAL T3 155.5 NG/DL (60.0-181.0)
[2023-03-15 12:00] LABS: THYROID PEROXIDASE ANTIBODY < 28.0 U/ML (<60.0); THYROID STIMULATING HORMONE 2.486 uIU/ML (0.55-4.78); THYROXINE (T4) 11.5 UG/DL (4.5-10.9)
[2023-03-16 12:38] LABS: COLD AGGLUTININS POSITIVE 1:4 (NEGATIVE); CRYOGLOBULINS NEGATIVE (NEGATIVE)
== END ==
LOC: M LAB 09:21
PROVIDERS: ATTEND Allergy & Immunology Allergy
DX: L50.1 Idiopathic urticaria (principal); L50.2 Urticaria due to cold and heat